=== PATIENT | female | born 1960 | race Caucasian/White ===

== ENCOUNTER → 2019-10-22 10:05 | Outpatient (BNVA) | payer MEDICAID, SELFPAY | PROVIDERS: Family Provider Family Medicine; Visit Provider Internal Medicine | DX: Z11.59 Encounter for screening for other viral diseases (principal) | CPT/HCPCS: 87635 ==

== ENCOUNTER 2019-10-24 11:32 | Day surgery (SDC) | payer MEDICAID, SELFPAY ==
[2019-10-23 12:53] VITALS: BMI 20.2
[2019-10-24] VITALS (12 sets, daily range): BP systolic 107–181; BP diastolic 79–101; PULSE 58–73; RESP 14–22; TEMP 36.1–37.1; O2SAT 96–100
--- NOTE | 2019-10-24 12:00 | W.PM.OPSUD ---
Surgery/Procedure H&P Update DATE OF PROCEDURE: October 24, 2019 DATE H&P PERFORMED: 10/09/19 PREOP DIAGNOSIS: Right rotator cuff tear PLANNED PROCEDURE: Operation Date: 10/24/19 13:50 Proposed Procedures p Shoulder Arthroscopy w/ subacromial decompression [id number] M75.101(Right) - Kenton Daily MD s Rotator Cuff Repair(Right) - Kenton Daily MD
[2019-10-24] MEDS: sodium chloride 0.9% 1,000 ML 30 ML IV (12:12)
[2019-10-24] MEDS: vancomycin 1,000 MG in sodium chloride 0.9% 250 ML 250 MG IV (12:31)
--- NOTE | 2019-10-24 12:46 | ANES.PREANE2 ---
Pre-Anesthetic Assessment Pre-Anesthetic Assessment: Height/Weight: Height 1.63 m Weight 53.524 kg Temp Pulse Resp BP Pulse Ox 97.5 F L 73 16 152/84 98 10/24/19 12:03 10/24/19 12:03 10/24/19 12:03 10/24/19 12:03 10/24/19 12:03 Preop Diagnosis: Right rotator cuff tear Proposed Procedure: Operation Date: 10/24/19 13:50 Proposed Procedures p Shoulder Arthroscopy w/ subacromial decompression [id number] M75.101(Right) - Kenton Daily MD s Rotator Cuff Repair(Right) - Kenton Daily MD Familial anesthetic complications: none Was Beta Criss taken within 24 hours: N/A Last intake: Intake Last Liquid Date 10/24/19 Last Liquid Time 07:00 Last Solid Date 10/23/19 Last Solid Time 22:30 Social: Social History: Tobacco and No alcohol Exam: Pre-Anes Outpt Exam: alert, oriented x 3, clear to auscultation bilaterally and regular rate & rhythm Airway: Cervical ROM: WNL MP: 1 Dentition: False Pulmonary: Pulmonary: COPD Comments: had nerve block for shoulder before and didn't become SOB GI: GI: GERD Anesthetic Plan: ASA status: 3 Anesthesia: General and Regional (specify below) Risk of > 500 ml blood loss (7ml/kg in children): No Meds/Allergies Current Medications: Current Medications Generic Name Dose Route Start Last Admin Trade Name Freq PRN Reason Stop Dose Admin Vancomycin HCl 1,0 00 mg/ 250 mls @ 250 mls /hr 10/24/19 11:58 10/24/19 12:31 Sodium Chloride IV 10/24/19 12:57 250 mls/hr ONCE ONE Administration Protocol Sodium Chloride 1,000 mls @ 30 ml s/hr 10/24/19 12:00 10/24/19 12:12 Sodium Chloride 0.9% IV 10/25/19 11:59 30 mls/hr .Q24H DAWNA Administration PFSH Anesthesia PFSH: Medical History (Updated 10/09/19 @ 10:56 by Petra Ledbetter LPN) Major depressive disorder, recurrent severe without psychotic features Data Anesthesia Cardiac Studies: No Data to Display
--- NOTE | 2019-10-24 12:47 | ANES.PROC ---
Anesthesia Procedures Procedure/Date: 10/24/19 Nerve Block ^: Nerve Block 1: Main Anesthesia: general anesthesia Time Out Performed: Yes Consent: requested by attending/covering physician, from patient, risks and benefits reviewed and patient agrees to proceed Nerve block location: interscalene (R) Anesthesia monitors applied: pulse oximetry, EKG, BP cuff and oxygen Nerve block position: semi sitting Anesthetic Used: ropivicaine 0.5% and with decadron (4 mg) Amount of anesthesia used (mL): 20 Ultrasound used to: recognize landmarks and visualize and ID interscalene groove Nerve Stimulator Used?: No Interscalene/Femoral BLK: 2 stimuplex 22 g needle used for position and inplane approach, visualize local anesthetic spread and no vascular puncture identified Injection: neg aspiration of heme Patient Tolerated Procedure: well Complications: none
[2019-10-24] MEDS: midazolam 1 mg/mL INJ 5 ML 5 MG IVP (12:51)
--- NOTE | 2019-10-24 15:47 | SUR.PHASEI ---
1540 PATIENT TO PACU FROM OR. DRESSING TO RIGHT SHOULDER, CDI WITH ARM SLING IN PLACE. RIGHT RADIAL PULSE PALPATED. RR EVEN AND UNLABORED. SPO2 100% ON SIMPLE MASK AT 8L.
--- NOTE | 2019-10-24 15:55 | PM.OP ---
Operative Report Date of procedure: October 24, 2019 Pre-op Diagnosis: Right rotator cuff tear Post-op diagnosis: other Post-op Diagnosis: Tear right rotator cuff, impingement Post-op Findings: The patient has a large chronic tear of the right rotator cuff approximately 2 cm from anterior to posterior that appeared crescent-shaped with the apex near the level of the glenoid. She anterior spurring of her acromion. Procedure Done: Arthroscopic repair right rotator cuff, right subacromial decompression Implants: Torres and Nephew Regeneten implant, 5.5 mm Torres and Nephew Helicoil anchor Pathology: none sent Anesthesia: General Estimated blood loss (mL): 5 Findings: The patient had a large tear of the right rotator cuff approximately 2 cm from anterior to posterior beginning just posterior to the biceps with medial extension to the level of the glenoid. She had atrophy of her tendon edges however the edges could be approximated by marginal convergence.. She had prominent anterior spurring of her acromion. Condition: stable Procedure: The patient was taken to the operating room and after an interscalene block was provided by anesthesia. She was given a gram of vancomycin. She is prepped and draped in the lateral position with the right arm exposed. A timeout was performed. The shoulder was initially entered through a posterior portal. An anterior portal was opened up with a scalpel blade. The diagnostic portion arthroscopy was performed. The biceps was inspected and found to be healthy. The humeral head and glenoid were free of chondromalacia. The labrum was free of a tearing. The scope was then moved to the subacromial space and a lateral portal open. Bursal tissue was removed with incisor shaver and Torres and Nephew Werewolf probe revealing the tear. The tendon was thin however it was also fairly mobile. Incision was made to proceed with a side to side repair and reinforced with a patch to her address the poor biologic quality tendon. Through the anterior portal an ultra tape suture was passed at the posterior apex of the tear. The articular limb was retrieved through the anterior rotator cuff tear with a sharp suture retriever. This was repeated approximately 1 cm laterally as well. Greater tuberosity was debrided with the incisor shaver. Through a lateral stab wound a 5.5 mm helical anchor was placed with 1 ultra tape. One limb of ultra tape was placed posterior and medial to the last intratendinous suture. The other limb was passed anterior and medial to the last intratendinous Ultratape. 2 intratendinous sutures were secured. Finally the suture anchor sutures secured drawing the debrided rotator cuff to bone. Through a lateral stab wound the Torres and Nephew Regeneten implant was placed. It was fixed medially anteriorly and posteriorly with soft tissue emma. It was fixed laterally with 3 bony emma. Shoulder was irrigated with saline. Portals were closed with 3-0 Prolene. Sterile dressings were applied. The patient was extubated and taken to recovery room in stable condition.
[2019-10-24] MEDS: fentaNYL 50 mcg/mL INJ 2mL IVP (16:07)
--- NOTE | 2019-10-24 16:27 | SUR.PHASEI ---
1624 PATIENT TO OPS. DRESSING TO RIGHT SHOULDER, CDI WITH SLING IN PLACE.
--- NOTE | 2019-10-24 16:45 | ANE.PACU2 ---
Inpatient post-anesthesia follow up: Airway intact: Yes Vital signs: Temperature 98.8 F Pulse Rate 72 Respiratory Rate 18 Blood Pressure 141/85 Pulse Oximetry 96 Oxygen Delivery Me thod Room Air Oxygen Flow Rate 8 Fraction of Inspir ed Oxygen Hydration adequate: Yes Nausea and vomiting: No Pain level: 1 Mental status: Baseline
== END 2019-10-24 17:14 | disposition home or self-care (01) ==
PROVIDERS: Family Provider Family Medicine; Visit Provider Orthopaedic Surgery
PROC: (CPT 29805; principal; 2019-10-24 13:50)
PROC: (CPT 29827; 2019-10-24 13:50)
DX: M75.101 Unspecified rotator cuff tear or rupture of right shoulder, not specified as traumatic (principal); M75.41 Impingement syndrome of right shoulder; J44.9 Chronic obstructive pulmonary disease, unspecified; K21.9 Gastro-esophageal reflux disease without esophagitis; F33.2 Major depressive disorder, recurrent severe without psychotic features
CPT/HCPCS: 29827; 12345; C1713; J1100; J2250; J2704; J2795; J3010; J3370; J7030; J7050

== ENCOUNTER 2021-10-20 07:47 | Outpatient (CLI) | payer MEDICAID, SELFPAY ==
--- NOTE | 2021-10-20 07:52 | MR_ITS ---
WS: [id number] MRI CERVICAL SPINE NONCONTRAST HISTORY: Chronic neck and RIGHT shoulder pain. Migraines. COMPARISON: 03/18/2015 Technique: Multiplanar, multisequence noncontrast imaging of the cervical spine. Moderate progression of degenerative disc disease and spondylosis since 2016. There is now anterolist hesis of C2 by 3 mm. Retrolisthesis of C3 by 4 mm and retrolisthesis of C4 and C5 by 3 mm. Significan t degenerative disc disease and progressive disc space narrowing at C3-4, C4-5 and C5-6 since the angela or examination. Increasing osteophytosis. Signal within the cord is normal. Craniocervical junction, C1 and C2 relationship, odontoid process and soft tissues are normal. C2-C3: Very shallow central disc protrusion. No stenosis. C3-C4: Annular disc bulging and osteophytic ridging causing complete effacement of ventral CSF. Osteo phyte and disc contact on the ventral thecal cord with posterior displacement. Moderate central steno sis with moderate RIGHT foraminal stenosis due to disc osteophyte disease. Disc osteophyte contacts t he RIGHT lateral thecal sac and proximal foramen. Mild LEFT foraminal stenosis. C4-C5: Diffuse osteophytic ridging with annular disc bulging. Mild central and LEFT foraminal stenosi s. Moderate RIGHT foraminal stenosis due to disc and osteophyte disease. C5-C6: Diffuse osteophytic ridging and annular disc bulging. Mild central stenosis with mild bilatera l foraminal stenosis. C6-C7: Mild annular disc bulging. Mild bilateral foraminal stenosis. Only due to osteophyte disease. C7-T1: Normal. Paraspinal soft tissue are normal. MR/MR cervical spin wo con* [id number] IMPRESSION: 1. Moderate progression of the degenerative disc disease and osteophytosis sin ce 2016. 2. Retrolisthesis of C3 and C4 and anterolisthesis of C2 are new since the angela or study. 3. Moderate central and RIGHT foraminal stenosis at C3-4 due to retrolisthesis disc and osteophyte disease. There is mild posterior displacement of the ventr al cervical cord. 4. Moderate RIGHT foraminal stenosis at C4-5 with mild central and LEFT forami nal stenosis. 5. Mild central and bilateral foraminal stenosis at C5-6. 6. Mild bilateral foraminal stenosis at C6-7.
--- NOTE | 2021-10-20 07:52 | MR_ITS ---
WS: [id number] MRI BRAIN WITHOUT CONTRAST HISTORY: CEREBRAL INFARCTION COMPARISON: 12/28/2005 TECHNIQUE: Diffusion imaging, multiplanar T1, T2 and FLAIR imaging obtained. There is a very tiny focus of increased diffusion-weighted signal without a corresponding ADC map abn ormality. This could potentially be a subacute, very tiny infarct in the RIGHT occipital region. Prio r infarcts in the LEFT MCA territory with encephalomalacia and gliosis. Infarcts are in the anterior LEFT frontal lobe and at the LEFT frontoparietal junction. There are a few additional areas of scatte red T2 and FLAIR signal hyperintensities from small vessel ischemic disease which have progressed sin 2005. Ventricles and extra-axial spaces are normal. No inferior displacement of cerebellar tonsils. The sella turcica and pituitary gland are unremarkabl e. Dural venous sinuses and hoopa of Mitchell demonstrate no abnormality on this unenhanced studies. Paranasal sinuses: Clear. Mastoid air cells: Normal. Calvarium and scalp: Intact. MR/MR head wo con* [id number] IMPRESSION: 1. No acute infarct or hemorrhage. 2. Questionable very tiny subacute infarct RIGHT occipital lobe. 3. Remote infarcts in the LEFT MCA artery territory with encephalomalacia and gliosis, similar to 12/28/2005. 4. Mild progression of small vessel ischemic disease.
--- NOTE | 2021-10-20 07:52 | USCV_ITS ---
Jaylyn Villanueva Age: 60 Gender: F : 1960 Exam Date: 10/20/2021 09:29 Ordering Phys: Wilbur Dupont MD Technologist: Will Ortiz Exam Location: [facility] [place] Indication: occlusion and stenosis Risk Factors: Previous Vascular Surgery: Right Brachial BP: / Left Brachial BP: / Right Left Velocity (cm/s) Spectral Plaque Velocity (cm/s) Spectral Plaque Syst/Diast Broadening Syst/Diast Broadening 51.50/ 12.90 Prox CCA 80.80 / 14.80 51.30/ 11.70 Mid CCA 52.80 / 17.90 53.80/ 15.40 Distal CCA 44.30 / 16.30 91.50/ 25.40 Prox ICA 54.90 / 19.40 99.20/ 37.50 Mid ICA 98.00 / 28.40 110.30/39.70 Distal ICA 99.80 / 33.00 121.30 ECA 66.80 1.94 ICA/CCA 1.86 Antegrade Vertebral Antegrade 60.60/ 14.30 cm/s 79.70/ 23.80 cm/s Tri Subclavian Bi 74.60 82.90 CONCLUSIONS Right ICA stenosis <50%. Mild atheromatous plaque right carotid bulb/ICA. Left ICA stenosis <50%. Prior Left CEA.Mild atheromatous plaque left carotid bulb/ICA. Normal antegrade Doppler flow noted in the right vertebral artery. Normal antegrade Doppler flow noted in the left vertebral artery. Miller Ingram MD (Electronically Signed) Final Date: 20 October 2021 10:33 S
== END 2021-10-20 07:48 | disposition home or self-care (01) ==
LOC: RAD 07:48
PROVIDERS: PCP Family Medicine; Visit Provider Family Medicine
DX: I65.23 Occlusion and stenosis of bilateral carotid arteries (principal); M54.12 Radiculopathy, cervical region; I63.9 Cerebral infarction, unspecified; G89.29 Other chronic pain; G43.909 Migraine, unspecified, not intractable, without status migrainosus; M48.02 Spinal stenosis, cervical region; M50.30 Other cervical disc degeneration, unspecified cervical region; M25.78 Osteophyte, vertebrae
CPT/HCPCS: 70551; 72141; 93880

== ENCOUNTER → 2021-11-16 11:08 | Outpatient (BNVA) | payer MEDICAID, SELFPAY | PROVIDERS: PCP Family Medicine; Referring Provider Family Medicine; Visit Provider Specialist | DX: G62.9 Polyneuropathy, unspecified (principal); M48.02 Spinal stenosis, cervical region; G99.2 Myelopathy in diseases classified elsewhere; G43.711 Chronic migraine without aura, intractable, with status migrainosus | CPT/HCPCS: 99204 ==

== ENCOUNTER → 2021-11-23 14:06 | Outpatient (BNVA) | payer MEDICAID, SELFPAY | PROVIDERS: PCP Family Medicine; Visit Provider Physician Assistant | DX: M48.02 Spinal stenosis, cervical region (principal); M47.12 Other spondylosis with myelopathy, cervical region; M75.41 Impingement syndrome of right shoulder | CPT/HCPCS: 20610; 72050; 99204; 99205; J1100; J2795 ==

== ENCOUNTER → 2021-12-15 09:02 | Outpatient (BNVA) | payer MEDICAID, SELFPAY | PROVIDERS: PCP Family Medicine; Visit Provider Anesthesiology Pain Medicine | DX: M54.2 Cervicalgia (principal); M79.601 Pain in right arm; M79.602 Pain in left arm; F17.210 Nicotine dependence, cigarettes, uncomplicated | CPT/HCPCS: 99204 ==

== ENCOUNTER → 2022-01-12 13:57 | Outpatient (BNVA) | payer MEDICAID, SELFPAY | PROVIDERS: PCP Family Medicine; Visit Provider Anesthesiology Pain Medicine | DX: M54.12 Radiculopathy, cervical region (principal); F17.210 Nicotine dependence, cigarettes, uncomplicated | CPT/HCPCS: 62321; J1100 ==

== ENCOUNTER → 2022-05-17 13:10 | Outpatient (BNVA) | payer MEDICAID, SELFPAY | PROVIDERS: PCP Family Medicine; Visit Provider Surgery | DX: Z12.11 Encounter for screening for malignant neoplasm of colon (principal) | CPT/HCPCS: 99203 ==

== ENCOUNTER 2022-06-08 08:00 | Day surgery (SDC) | payer MEDICAID, SELFPAY ==
[2022-06-06 10:03] VITALS: BMI 20.5
[2022-06-08 08:27] VITALS: BP 116/80; PULSE 84; RESP 16; TEMP 36.4; O2SAT 97
[2022-06-08] MEDS: sodium chloride 0.9% 1,000 ML 30 ML IV (08:48)
--- NOTE | 2022-06-08 09:34 | ANES.PREANE2 ---
Pre-Anesthetic Assessment Height/Weight: Height 1.63 m Weight 54.431 kg Temp Pulse Resp BP Pulse Ox O2 Del Method 97.5 F L 84 16 116/80 97 Room Air 06/08/22 08:27 06/08/22 08:27 06/08/22 08:27 06/08/22 08:27 06/08/22 08:27 06/08/22 08:27 Preop Diagnosis: Right rotator cuff tear Operation Date: 06/08/22 10:00 Proposed Procedures p Colonoscopy 85022,Z12.11(Not Applicable) - Vikas Warner DO Familial anesthetic complications: none Last intake: Intake Last Liquid Date 06/07/22 Last Liquid Time 20:00 Last Solid Date 06/06/22 Last Solid Time 19:00 Social cannabis use none today. Exam alert, oriented x 3, No clear to auscultation bilaterally and No regular rate & rhythm Airway Cervical ROM: Other (limited ROM pain.) Mallampati: Class II Dentition: false (upper plate) Pulmonary Chronic Obstructive Pulmonary Disease CV/HEM Coronary Artery Disease (CEA at 34 99% blockage per patient. She states she recently had Carotid doppler and she has 50% stenosis) None reported Hepatic None reported GI Gastroesophageal Reflux Disease Metabolic None reported Musc/skel Fibromyalgia and Osteoarthritis/DJD neck pain Neuropsych Anxiety, Cerebrovascular Accident (x2- 32 year old and 03/07 ), Depression, Headache and Neuropathy Anesthetic Plan ASA status: 3 Anesthesia: MAC Medications/Allergies Home Medications Medication Instructions Recorded Confirmed Last Taken Type omeprazole 20 mg capsule,delayed 20 mg PO DAILY 05/28/19 06/08/22 06/07/22 History release aspirin 81 mg tablet,delayed 81 mg PO DAILY 10/23/19 06/08/22 06/06/22 History release ([place] Low Dose Aspirin) [id number]-jqbcmacr 1 tab PO .q 2-4 hours PRN migraines 09/09/21 06/08/22 06/07/22 History 50 mg-325 mg-40 mg tablet (Esgic) methocarbamol 750 mg tablet 750 mg PO Q8H 11/16/21 06/08/22 06/07/22 History MARIJUANA 1 inh inhalation DAILY 12/15/21 06/08/22 06/07/22 History Allergies Allergy/AdvReac Type Severity Reaction Status Date / Time bacitracin Allergy Unknown unk Verified 06/08/22 08:23 tetracycline Allergy Unknown unk Verified 06/08/22 08:23 Current Medications Generic Name Dose Route Start Last Admin Trade Name Bernardq PRN Reason Stop Dose Admin Sodium Chloride 1,000 mls @ 30 mls/hr 06/08/22 08:15 06/08/22 08:48 Sodium Chloride 0.9% IV 06/09/22 08:14 30 mls/hr .Q24H DAWNA Administration PFSH Anesthesia Medical History (Updated 05/17/22 @ 13:51 by Vikas Warner DO) History of fracture of wrist right History of skin cancer removed from nose History of stroke Insomnia Major depressive disorder, recurrent severe without psychotic features Migraines Neck pain Numbness and tingling Psychiatric care Surgical History (Updated 05/17/22 @ 13:51 by Vikas Warner DO) History of ankle surgery left Hx of colonoscopy with polypectomy 06/28/16 Hx of hysterectomy Hx of knee surgery left lateral release Hx of shoulder surgery bilateral Social History Smoking and tobacco status: current every day smoker cigarettes Packs smoked per day: 0.5 Alcohol intake: never Substance/Drug Use: current Substance/Drug use frequency: daily Data Anesthesia Cardiac Studies: No Data to Display
--- NOTE | 2022-06-08 10:07 | W.PM.OPSUD ---
Surgery/Procedure H&P Update DATE OF PROCEDURE: June 08, 2022 DATE H&P PERFORMED: 05/17/22 H&P UPDATE INFORMATION: I have reviewed H&P completed within last 30 days, I have examined patient prior to procedure and No changes to prior documentation PREOP DIAGNOSIS: Right rotator cuff tear PLANNED PROCEDURE: Operation Date: 06/08/22 10:00 Proposed Procedures p Colonoscopy 69189,Z12.11(Not Applicable) - Vikas Warner DO
[2022-06-08 10:29] VITALS: BP 149/89; PULSE 89; RESP 14; TEMP 36.1; O2SAT 97
[2022-06-08 10:37] VITALS: BP 184/92; PULSE 72; RESP 18; O2SAT 97
--- NOTE | 2022-06-08 15:03 | ANE.PACU2 ---
Inpatient post-anesthesia follow up: Airway intact: Yes Vital signs: Temperature 97.0 F Pulse Rate 72 Respiratory Rate 18 Blood Pressure 184/92 Pulse Oximetry 97 Oxygen Delivery Me thod Room Air Oxygen Flow Rate Fraction of Inspir ed Oxygen Hydration adequate: Yes Nausea and vomiting: No Pain level: 2 Mental status: Baseline
== END 2022-06-08 10:53 | disposition home or self-care (01) ==
PROVIDERS: PCP Family Medicine; Visit Provider Surgery
PROC: 0DJD8ZZ Inspection of Lower Intestinal Tract, Via Natural or Artificial Opening Endoscopic (ICD-10-PCS; CPT 45330; 2022-06-08 10:00)
DX: Z12.11 Encounter for screening for malignant neoplasm of colon (principal); Z86.010 Personal history of colon polyps; J44.9 Chronic obstructive pulmonary disease, unspecified; I25.10 Atherosclerotic heart disease of native coronary artery without angina pectoris; K21.9 Gastro-esophageal reflux disease without esophagitis; Z86.73 Personal history of transient ischemic attack (TIA), and cerebral infarction without residual deficits; Z79.82 Long term (current) use of aspirin; F17.210 Nicotine dependence, cigarettes, uncomplicated
CPT/HCPCS: 45330; J2704; J7030

== ENCOUNTER → 2022-07-21 14:06 | Outpatient (BNVA) | payer MEDICAID, SELFPAY | PROVIDERS: PCP Family Medicine; Visit Provider Physician Assistant | DX: Z01.818 Encounter for other preprocedural examination (principal); M47.12 Other spondylosis with myelopathy, cervical region; M75.41 Impingement syndrome of right shoulder; M50.30 Other cervical disc degeneration, unspecified cervical region | CPT/HCPCS: 36415; 80053; 83036; 85025; 99204 ==

== ENCOUNTER 2022-08-10 13:05 | Inpatient (IN) | payer MEDICAID, SELFPAY ==
[2022-08-08 12:10] VITALS: BMI 19.2
[2022-08-10] VITALS (84 sets, daily range): BP systolic 107–223; BP diastolic 56–112; PULSE 62–117; RESP 10–28; TEMP 35.9–36.9; O2SAT 92–100
--- NOTE | 2022-08-10 | XR_ITS ---
WS: [id number] Exam: XR cervical spine 3V* [id number] Date/Time of Exam: 08/10/2022 12:00 AM Reason For Exam: ACDF C3-4, C4-5, C5-6 AP and lateral intraoperative C-arm images of the C-spine are obtained. Images depict anterior plate and screw fixation of the C-spine from C2 to C7. A spacer is in place at the C3-4 level. Disc spacers also noted at C6-7 and C5-6. An endotracheal tube is visualized. XR/XR cervical spine 3V* [id number] IMPRESSION: 1. Anterior cervical fusion appearing to be in satisfactory alignment.
[2022-08-10] MEDS: sodium chloride 0.9% 1,000 ML 30 ML IV (06:29)
--- NOTE | 2022-08-10 06:33 | W.PM.OPSUD ---
Surgery/Procedure H&P Update DATE OF PROCEDURE: August 10, 2022 DATE H&P PERFORMED: 08/03/22 H&P UPDATE INFORMATION: I have reviewed H&P completed within last 30 days, I have examined patient prior to procedure and No changes to prior documentation PREOP DIAGNOSIS: Cervical spondylosis with myelopathy PLANNED PROCEDURE: Operation Date: 08/10/22 07:00 Proposed Procedures p C3-4 C4-5 C5-6 ACDF:19822,19258 X 2,24793,87869,M47.12,M50.30(Not Applicable) - Jose Joaquin DO
--- NOTE | 2022-08-10 06:50 | ANES.PREANE2 ---
Pre-Anesthetic Assessment Height/Weight: Height 1.63 m Weight 50.802 kg Temp Pulse Resp BP Pulse Ox O2 Del Method 96.7 F L 81 17 156/100 100 Room Air 08/10/22 06:20 08/10/22 06:20 08/10/22 06:20 08/10/22 06:20 08/10/22 06:20 08/10/22 06:20 Preop Diagnosis: Cervical spondylosis with myelopathy Operation Date: 08/10/22 07:00 Proposed Procedures p C3-4 C4-5 C5-6 ACDF:97200,11897 X 2,00484,72773,M47.12,M50.30(Not Applicable) - Jose Joaquin DO Familial anesthetic complications: None Was Beta Criss taken within 24 hours: N/A Was Clonidine taken within 24 hours: N/A Last intake: Intake Last Liquid Date 08/09/22 Last Liquid Time 19:00 Last Solid Date 08/09/22 Last Solid Time 18:00 Social Tobacco and No alcohol Exam alert, oriented x 3, clear to auscultation bilaterally and regular rate & rhythm Airway Mallampati: Class III Dentition: false Pulmonary Chronic Obstructive Pulmonary Disease CV/HEM Hypertension Chronic Renal Insufficiency Neuropsych Cerebrovascular Accident (RITIKA) Anesthetic Plan ASA status: 3 Anesthesia: General Risk of > 500 ml blood loss (7ml/kg in children): No Other Pertinent Information patient states she has poison over the extensor surfaces of her forearms. Surgeon informed. Providers who will be in contact with patient informed Medications/Allergies Home Medications Medication Instructions Recorded Confirmed Last Taken Type omeprazole 20 mg capsule,delayed 20 mg PO DAILY 05/28/19 08/10/22 08/09/22 History release aspirin 81 mg tablet,delayed 81 mg PO DAILY 10/23/19 08/08/22 07/09/22 History release ([place] Low Dose Aspirin) [id number]-holeonychwzll-vexeejau 1 tab PO .q 2-4 hours PRN migraines 09/09/21 08/08/22 06/07/22 History 50 mg-325 mg-40 mg tablet (Esgic) methocarbamol 750 mg tablet 750 mg PO Q8H 11/16/21 08/10/22 08/08/22 History MARIJUANA 1 inh inhalation DAILY 12/15/21 08/10/22 08/09/22 History albuterol sulfate 90 mcg/actuation 1 inh inhalation Q4H PRN shortness 08/03/22 08/10/22 Unknown History aerosol inhaler (Ventolin HFA) of breath or wheezing atorvastatin 20 mg tablet 20 mg PO DAILY 08/03/22 08/10/22 08/09/22 History meloxicam 15 mg tablet 15 mg PO DAILY 08/03/22 08/10/22 08/08/22 History solifenacin 10 mg tablet 10 mg PO DAILY 08/03/22 08/10/22 08/09/22 History intraoperative neurophysiological #1 ea 08/05/22 08/05/22 Unknown Rx testing Allergies Allergy/AdvReac Type Severity Reaction Status Date / Time tetracycline Allergy Unknown unk Verified 08/03/22 10:25 sulfamethoxazole Allergy ALGY-Hives Verified 08/10/22 06:31 [From Bactrim] trimethoprim [From Bactrim] Allergy ALGY-Hives Verified 08/10/22 06:31 Current Medications Generic Name Dose Route Start Last Admin Trade Name Freq PRN Reason Stop Dose Admin Sodium Chloride 1,000 mls @ 30 mls/hr 08/10/22 06:15 08/10/22 06:29 Sodium Chloride 0.9% IV 08/11/22 06:14 30 mls/hr .Q24H DAWNA Administration PFSH Anesthesia Medical History (Updated 08/03/22 @ 11:01 by Red Dow NP) Chronic kidney disease (CKD) COPD (chronic obstructive pulmonary disease) Essential hypertension History of fracture of wrist right History of skin cancer removed from nose History of stroke Hx of arterial ischemic stroke last one August 2021 Hx of carotid stenosis Insomnia Major depressive disorder, recurrent severe without psychotic features Migraines Neck pain Numbness and tingling Psychiatric care Tobacco dependence Surgical History History of ankle surgery left Hx of colonoscopy with polypectomy 06/28/16 Hx of hysterectomy Hx of knee surgery left lateral release Hx of shoulder surgery bilateral Family History Denies family history of Clotting disorder Anesthesia complication Bleeding disorder Social History Smoking and tobacco status: current every day smoker cigarettes Packs smoked per day: 0.5 Alcohol intake: never Substance/Drug Use: current Substance/Drug use frequency: daily Data Anesthesia Cardiac Studies: No Data to Display
[2022-08-10] MEDS: ceFAZolin 2,000 MG in sodium chloride 0.9% (plus) 50 ML 100 MG IV ×3 (07:09→23:02)
[2022-08-10 07:35] LABS: Add Urine Microscopic? YES; Bilirubin Urine Neg (Negative); Blood Urine 2+ (Negative); Glucose Urine UA Norm (Normal); Ketones Urine Negative (Negative); Leukocyte Esterase Urine Negative (Negative); Nitrate Urine Negative (Negative); Protein Urine Neg (Negative); Specific Gravity, Urine 1.015 (1.005-1.030); Urine Appearance Cloudy (CLEAR); Urine Color Yellow (Yellow); Urobilinogen Urine Norm (Negative); pH Urine 6.5 (5-7)
[2022-08-10 07:42] LABS: Add Urine Culture? Yes; Bacteria Urine 4+ /hpf; Mucus Urine 1+ /hpf; RBC Urine 0-4 /hpf (0-2); Squamous Epithelial Cell Urine 0-4 /hpf (0-5)
[2022-08-10] MEDS: lidocaine-epi 2% 20 mL INJ INJECTION (07:44)
[2022-08-10] MEDS: HYDROmorphone 1 mg/mL INJ 1 mL (10:17)
--- NOTE | 2022-08-10 10:40 | PM.OP ---
Operative Report Date of procedure: August 10, 2022 Pre-op diagnosis: Preop Diagnosis Cervical spondylosis with myelopathy Post-op diagnosis: same Procedure done: 1. Corpectomy C3 >50% 2. Insertion of corpectomy cage C2-C4 3. Anterior diskectomy C2/3 4. Anterior discectomy C3/4 5. Anterior diskectomy C4/5 6. Anterior diskectomy C5/6 7. Insertion of cage C4/5 8. Insertion of cage C5/6 9. Instrumentation with anterior plate from C2-6 10. Use of allograft Surgeon: Jose Joaquin Vocal Performer: Juancarlos Napier Vocal Performer: The surgical elastic knitter hand frame, Juancarlos Napier, PAC was needed for his expertise under the microscope. He was important and necessary throughout the procedure to complete in a safe and timely manner. He assisted with patient positioning prepping and draping tissue retraction suctioning of the operative field protection of the dural sac and tissue closure Estimated blood loss (mL): 50 Procedure: 1. Corpectomy C3 >50% 2. Insertion of corpectomy cage C2-C4 3. Anterior diskectomy C2/3 4. Anterior discectomy C3/4 5. Anterior diskectomy C4/5 6. Anterior diskectomy C5/6 7. Insertion of cage C4/5 8. Insertion of cage C5/6 9. Instrumentation with anterior plate from C2-6 10. Use of allograft The patient was taken to the operating room, where he underwent general endotracheal anesthesia without complications. He was then positioned supine on the operating table, and all areas of impingement were well padded. The arms were carefully padded and tucked at his sides. A roll was placed between the shoulder blades.. An x-ray was done to determine the appropriate level for the skin incision. The entire neck was then sterilely prepped and draped in the usual fashion. Neuromonitoring was attached prior to prepping. A transverse skin incision was made and carried down to the platysma muscle. This was then split in line with its fibers. Blunt dissection was carried down medial to the carotid sheath and lateral to the trachea and esophagus until the anterior cervical spine was visualized. A needle was placed into a disc and an x-ray was done to determine its location. The longus colli muscles were then elevated bilaterally with the electrocautery unit. Self-retaining retractors were placed deep to the longus colli muscle. Patient was brought to the C2-C4 level. The [place] pin was placed into the C2 vertebral body. And another [place] pin was placed into the C4 vertebral body. This was then distracted. Next attention was brought to bring the microscope in. Discectomy was performed at C2-3. This was done using Bovie curved curettes high-speed drill the discectomy was brought down to the posterior longitudinal ligament. Curved curette was used to puncture through the longitudinal ligament. And then a #2 Kerrison was used to take out the remaining ligament and disc out into the foramen bilaterally. Nerves were felt to be adequate decompressed. Next attention was brought down to the C3-4 disc. This was again done using the Bovie pituitary Kerrison rongeur and curved curettes. Once the posterior longitudinal ligament was identified the the curved curette was used to break through the posterior longitudinal ligament and Kerrison rongeur was used to remove the remaining ligament. Once this was completed a high-speed drill was then used to remove the the vertebral body performing the corpectomy this drill was used all the way down to the posterior longitudinal ligament. Kerrison rongeurs were then used to remove any remaining disc and posterior longitudinal ligaments of the dura was exposed the dura was found to be in good repair the foramen of both C2-3 bilaterally and C3-4 bilaterally found to be completely open. The spacers were used to identify the length and width of the corpectomy site the interbody was again completely removed. And then a appropriate sized cage spanning from C2-C4. The cage was packed with OsteoMed bone graft. And the cage was tamped into position checked with x-ray and found to be in good position. Attention was brought to the C4/5 level that was confirmed on x-ray. A caspar pin was placed into the C4 vertebrae and the C5 vertebrae. The disk space was then distracted. The microscope was then brought in. A radical anterior discectomies were performed at C4/5. This included complete removal of the anterior annulus, nucleus, and posterior annulus. The posterior longitudinal ligament was removed as were the posterior osteophytes. Foraminotomies were then accomplished bilaterally. This was done using a high speed jasmin, kerrison rongeurs and curretes Once all of this was accomplished, the curved currette was used to check for any residual compression. The central canal was wide open as were the foramen. A high-speed bur was used to remove the cartilaginous endplates above and below the interspace. Bleeding cancellous bone was exposed. The disc space were measured and appropriate size cage were placed sterilely onto the field. Allograft graft was packed into the cages. The cage was then placed and there was good juxtaposition against the bleeding decorticated surfaces and good distraction of each interspace. Attention was brought to the next interspace. The [place] pins were removed. Bone wax was used to prevent any bleeding from occurring at the pin sites. Attention was brought to the C5/6 level that was confirmed on x-ray. A caspar pin was placed into the C5 vertebrae and the C6 vertebrae. The disk space was then distracted. The microscope was then brought in. A radical anterior discectomies were performed at C5/6. This included complete removal of the anterior annulus, nucleus, and posterior annulus. The posterior longitudinal ligament was removed as were the posterior osteophytes. Foraminotomies were then accomplished bilaterally. This was done using a high speed jasmin, kerrison rongeurs and curretes Once all of this was accomplished, the curved currette was used to check for any residual compression. The central canal was wide open as were the foramen. A high-speed bur was used to remove the cartilaginous endplates above and below the interspace. Bleeding cancellous bone was exposed. The disc space were measured and appropriate size cage were placed sterilely onto the field. Allograft graft was packed into the cages. The cage was then placed and there was good juxtaposition against the bleeding decorticated surfaces and good distraction of each interspace. Attention was brought to the next interspace. The [place] pins were removed. Bone wax was used to prevent any bleeding from occurring at the pin sites. The appropriate size anterior cervical locking plate was chosen and bent into gentle lordosis. Two screws were then placed into each of the vertebral bodies at C2, C4, C5 and C6. There was excellent purchase. A final x-ray was done confirming good position of the hardware and Cages. The locking screws were then applied, also with excellent purchase. Following a final copious irrigation, there was good hemostasis and no dural leaks. The carotid pulse was strong. The wounds were then closed in layers using 2-0 Vicryl suture for the platysma muscle, 2-0 Vicryl suture for the subcutaneous tissue, and 4-0 monocryl suture in a subcuticular skin closure. Glue was placed followed by application of a sterile dressing. The drain was hooked to bulb suction. A soft collar was applied. The patient was then carefully returned to the supine position on his hospital bed where he was reversed and extubated and taken to the recovery room having tolerated the procedure well.
[2022-08-10] MEDS: racepinephrine 0.5 mL Neb (12:05)
[2022-08-10] MEDS: HYDROcodone-acetaminophen 5-325 mg Tablet PO ×3 (13:26→23:08)
[2022-08-10] MEDS: diazePAM 5 mg Tablet PO ×2 (14:34→23:08)
--- NOTE | 2022-08-10 15:54 | ANE.PACU2 ---
Inpatient post-anesthesia follow up: Airway intact: Yes Vital signs: Temperature 98.0 F Pulse Rate 95 Respiratory Rate 16 Blood Pressure 126/67 Pulse Oximetry 96 Oxygen Delivery Me thod Room Air Oxygen Flow Rate 2 Fraction of Inspir ed Oxygen Hydration adequate: Yes Nausea and vomiting: No Pain level: 1 Mental status: Baseline Additional Comments: globus sensation and stridor - racemix epi given and surgeon inspected operative site
[2022-08-10] MEDS: methocarbamol 750 mg Tablet PO (17:28)
[2022-08-10] MEDS: docusate sodium 100 mg Capsule PO (17:30)
[2022-08-10] MEDS: ketorolac 30 mg/mL INJ IVP (19:30)
--- NOTE | 2022-08-10 20:49 | PC.NURSE ---
Patient refusing to leave telemetry in place due to extreme itching stating, they will leave blisters . Informed Dr Mathias and received onetime dose of Benadryl 50mg IVP for allergic reaction. RVBO
[2022-08-10] MEDS: diphenhydrAMINE 50 mg/mL SDV 1mL IVP (20:57)
[2022-08-11] VITALS (13 sets, daily range): BP systolic 132–174; BP diastolic 68–83; PULSE 59–92; RESP 10–20; TEMP 37; O2SAT 95–99
[2022-08-11] MEDS: methocarbamol 750 mg Tablet PO (02:56)
[2022-08-11] MEDS: ceFAZolin 2,000 MG in sodium chloride 0.9% (plus) 50 ML 100 MG IV (06:02)
[2022-08-11] MEDS: ketorolac 30 mg/mL INJ IVP (06:06)
--- NOTE | 2022-08-11 06:52 | PM.PN ---
Subjective Subjective: POD 1 Patient resting comfortably. Feeling much better. Mild swallowing difficulty no voice changes. Denies any chest pain, shortness of breath, headaches. Vitals/I&O/Wt Last Vital Signs Temp 98.6 F 08/11/22 06:00 Pulse 75 08/11/22 06:00 Resp 15 08/11/22 06:00 BP 172/83 08/11/22 06:00 Pulse Ox 99 08/11/22 06:00 O2 Del Method Room Air 08/11/22 06:00 O2 Flow Rate 2 08/10/22 10:53 08/10/22 08/10/22 08/11/22 14:59 22:59 06:59 Intake Total 150 / 150 827.5 / 977.5 390 / 1367.5 Output Total 220 / 220 320 / 540 800 / 1340 Balance -70 / -70 507.5 / 437.5 -410 / 27.5 Weight last 48 hrs Weight 112 lb Physical Exam Narrative: Patient is alert and oriented x3 with a good general appearance normal mood and affect. Nontender with palpation about the incisional site. Hemovac drain intact. Incision appears to be healing nicely without signs of erythema or drainage. No signs of infection. Good motor strength throughout both upper extremities. Appears to fire in all motor groups with 5/5 strength. Hands are warm good cap refill in all digits. Normal sensation to light touch in all dermatomal areas. Urinary Catheter Management: Adamson: Cath Placed During This Visit: yes, but has since been removed by the nurse Urinary Catheter Date of Insertion: 08/10/22 Urinary Catheter Time of Insertion: 07:12 Date Urinary Catheter Removed: 08/10/22 Time Urinary Catheter Discontinued: 10:00 A&P Assessment and plan (1) Status post cervical spinal fusion: Continue Ulster J collar. We will discontinue Hemovac drain. Discharge home after physical therapy mobilizes. Follow-up in the office in 1 week's time for wound check. Continue incentive spirometry for pulmonary toilet. Continue smoking cessation. Encouraged her to call for problems. Attestations Medical Necessity Statement*: Discharge home after Hemovac drain discontinued. Coding Level of Care Code Acute Code for Chg Fwd Diagnoses Status post cervical spinal fusion Z98.1
--- NOTE | 2022-08-11 07:26 | PC.NURSE ---
Hemovac removed per Juancarlos Murguia. Silverlon dressing removed, hemovac was removed and 2x2 gauze dressing placed over incision.
[2022-08-11] MEDS: aspirin 81 mg EC Tablet PO (08:22)
[2022-08-11] MEDS: HYDROcodone-acetaminophen 5-325 mg Tablet PO (08:23)
[2022-08-11] MEDS: pantoprazole DR 40 mg Tablet PO (08:23)
[2022-08-11] MEDS: docusate sodium 100 mg Capsule PO (08:23)
[2022-08-11] MEDS: atorvastatin 40 mg Tablet 20 MG PO (08:23)
--- NOTE | 2022-08-11 10:48 | PC.NURSE ---
Extensive education provided to patient with granddaughter at bedside. Written education provided as well as verbal education regarding post cervical spinal fusion care at home, follow up appointment, lifting restrictions, S/S to call provider or 911, S/S of infection, wound care, and fall risk. Patient verbalized understanding of teaching and was able to demonstrate teachings and teach back. Patient brought via wheelchair to personal vehicle with granddaughter as trash collector truck driver. Patient to stop by pharmacy on her way home.
--- NOTE | 2022-08-16 08:41 | W.PM.OPSUD ---
Surgery/Procedure H&P Update DATE OF PROCEDURE: 08/10/2022 DATE H&P PERFORMED: 07/21/22 H&P UPDATE INFORMATION: I have reviewed H&P completed within last 30 days, I have examined patient prior to procedure and No changes to prior documentation PREOP DIAGNOSIS: Cervical spondylosis with myelopathy PLANNED PROCEDURE: Operation Date: 08/10/22 07:00 Proposed Procedures p C3-4 C4-5 C5-6 ACDF:[id number] X 2,[id number],88519,M47.12,M50.30(Not Applicable) - Jose Joaquin DO
--- NOTE | 2022-08-16 08:41 | PM.DCS ---
Discharge Providers Date of Admission: 08/10/22 13:05 Date of Discharge: 2022 Attending Provider at Admission: Jose Joaqiun DO Attending Provider at Discharge: Jose Joaquin DO Primary Care Provider: Wilbur Dupont MD Diagnoses at Discharge Discharge Diagnosis (1) Status post cervical spinal fusion: Status: Acute Reason for Visit Reason for Visit: M47.12, M50.30 Physical Exam Urinary Catheter Management: Adamson: Cath Placed During This Visit: yes, but has since been removed by the nurse Urinary Catheter Date of Insertion: 08/10/22 Urinary Catheter Time of Insertion: 07:12 Date Urinary Catheter Removed: 08/10/22 Time Urinary Catheter Discontinued: 10:00 Discharge Data Studies Completed and Pending Completed Studies During Hospitalization Category Date Time Status XR cervical spine 3V* [id number] Routine Exams 08/10/22 Completed Radiology Impressions Cervical Spine X-Ray 08/10/22 00:00 IMPRESSION: 1. Anterior cervical fusion appearing to be in satisfactory alignment. Laboratory Results Urine Color Yellow (Yellow) 08/10/22 07:02 Urine Appearance Cloudy (CLEAR) A 08/10/22 07:02 Urine pH 6.5 (5-7) 08/10/22 07:02 Ur Specific [place] 1.015 (1.005-1.030) 08/10/22 07:02 Urine Protein Neg (Negative) 08/10/22 07:02 Urine Glucose (UA) Norm (Normal) 08/10/22 07:02 Urine Ketones Negative (Negative) 08/10/22 07:02 Urine Blood 2+ (Negative) H 08/10/22 07:02 Urine Nitrate Negative (Negative) 08/10/22 07:02 Urine Bilirubin Neg (Negative) 08/10/22 07:02 Urine Urobilinogen Norm mg/dL (Negative) 08/10/22 07:02 Ur Leukocyte Esterase Negative (Negative) 08/10/22 07:02 Urine RBC 0-4 /hpf (0-2) H 08/10/22 07:02 Urine WBC 5-10 /hpf (0-5) H 08/10/22 07:02 Ur Squamous Epith Cells 0-4 /hpf (0-5) H 08/10/22 07:02 Amorphous Sediment Not Reportable 08/10/22 07:02 Urine Bacteria 4+ /hpf (NONE) H 08/10/22 07:02 Urine Mucus 1+ /hpf 08/10/22 07:02 Vitals Last Vital Signs Temp 98.6 F 08/11/22 09:42 Pulse 85 08/11/22 10:00 Resp 20 H 08/11/22 10:00 BP 142/80 08/11/22 10:00 Pulse Ox 96 08/11/22 10:00 O2 Del Method Room Air 08/11/22 10:00 O2 Flow Rate 2 08/10/22 10:53 Discharge Plan Discharge Patient Disposition: Home Condition: Stable Prescriptions: New (DME) intraoperative neurophysiological testing See Rx Instructions .Route .MEDSUPPLY Qty: 1 0RF Rx Instructions: As directed hydrocodone-acetaminophen 5-325 mg Tablet 1 - 2 tab PO Q4H PRN (Reason: Post Operative Pain) Qty: 40 0RF Continued omeprazole 20 mg capsule,delayed release(DR/EC) 20 mg PO DAILY MARIJUANA 1 inh inhalation DAILY zwftpxtaim-xhlzopsugeiod-xyvf [Esgic] 50-325-40 mg tablet 1 tab PO .q 2-4 hours PRN (Reason: migraines) methocarbamol 750 mg tablet 750 mg PO Q8H atorvastatin 20 mg tablet 20 mg PO DAILY meloxicam 15 mg tablet 15 mg PO DAILY albuterol sulfate [Ventolin HFA] 90 mcg/actuation HFA aerosol inhaler 1 inh inhalation Q4H PRN (Reason: shortness of breath or wheezing) solifenacin 10 mg tablet 10 mg PO DAILY aspirin [[place] Low Dose Aspirin] 81 mg Tablet,Delayed Release (Dr/Ec) 81 mg PO DAILY Discharge Orders: Discharge Order (Routine); Ordered 08/11/22 Ordered By: Juancarlos Napier Referrals: Jose Joaquin DO [Physician] - 4-7 days (appointment date and time scheduled : August at time of 3:15 pm ) Discharge Diet: Advance as tolerated Discharge Activity: Limit activity as instructed Patient Instructions: Hydrocodone/Acetaminophen (By mouth) (Vicodin, [place], Lortab), Fall Prevention (DC), Anterior Cervical Discectomy (DC), Opioid Safety, Post Anesthesia Care Activity Restrictions/Additional Instructions: Thank you for choosing [facility] for your care! The following is a list of instructions, from your provider, to follow upon your discharge to ensure you have the optimal recovery from your recent injury or surgery. Anterior Cervical Discectomy and Fusion: What to Expect at Home Your Recovery Follow-up care is a neri part of your treatment and safety. Be sure to make and go to all appointments, and call your doctor if you are having problems. If you do not already have a follow-up appointment made, call office in the next 1-3 days to make follow up appointment for 1 weeks at [phone]. It is also a good idea to know your test results and keep a list of the medicines you take. You can expect your neck to feel stiff or sore after surgery. This should improve in the weeks after surgery. But it may take 4 to 6 months for you to get better completely. You may have trouble sitting or standing in one position for very long and may need pain medicine in the weeks after your surgery. It may take 4 to 6 weeks to get back to your usual activities, but it may depend on what kind of surgery you had. Your throat will feel sore and it may be difficult to swallow for the first 3 days after your surgery. As long as you can get liquids down without difficulty, this should slowly improve, otherwise call our office or seek medical attention if it becomes increasingly difficult to get anything down including liquids. Avoid hot liquids for first 3-5 days. Soothing foods/liquids such as jello, pudding, and luke warm soups are recommended until swallowing improves. Staying elevated will also help, it's advised you keep propped up at while sleeping to help reduce the swelling. You may use an ice pack directly on your incision or around it on the front of your neck, using a cloth to protect your skin; and a heating pad to the back of your neck as needed. Do not use over the counter anti-inflammatory medications (Ibuprofen, Motrin, Aleve, Advil, etc) Taking these meds after having a fusion can delay fusion rates, we recommend you avoid them for the first 3 [address] after your surgery[address]. Joaquin may advise you to work with a physical therapist to strengthen the muscles around your neck and back - this will be discussed at your follow - up appointments. The pain or numbness you were having in your arms before surgery should get better or go away completely. This care sheet gives you a general idea about how long it will take for you to recover. But each person recovers at a different pace. Follow the steps below to get better as quickly as possible. How can you care for yourself at home? Activity ? Rest when you feel tired. Getting enough sleep will help you recover. ? Try to walk each day. Start by walking a little more than you did the day before. Bit by bit, increase the amount you walk. Walking boosts blood flow and helps prevent pneumonia and constipation. Walking may also decrease your muscle soreness after surgery. ? No lifting anything that is more that 5 pounds. This may include heavy grocery bags and milk containers, a heavy briefcase or backpack, cat litter or dog food bags, a child, or a vacuum mercury cell cleaner. ? Avoid strenuous activities, such as bicycle riding, jogging, weightlifting, or aerobic exercise, until your doctor says it is okay. ? Do not drive until your follow-up visit after your surgery, or until your doctor says it isokay. ? Avoid taking long car trips for 2 to 4 weeks after surgery. Your neck may become tired and painful from sitting too long in one position. ? You will probably need to take 4 to 6 weeks off from work. It depends on the type of work you do and how you feel. ? You may have sex as soon as you feel able, but avoid positions that put stress on your neck or cause pain. Diet ? You can eat your normal diet. If your stomach is upset, try bland, low-fat foods like plain rice, broiled chicken, toast, and yogurt ? Drink plenty of fluids. If you have kidney, heart, or liver disease and have to limit fluids, talk with your doctor before you increase the amount of fluids you drink. ? You may notice that your bowel movements are not regular right after your surgery. This is common. Try to avoid constipation and straining with bowel movements. You may want to take a fiber supplement every day. If you have not had a bowel movement after a couple of days, ask your doctor about taking a mild laxative. Medicines ? Take pain medicines exactly as directed. 1. If Dr. Joaquin gave you a prescription medicine for pain, take lt as prescribed. 2. Do not take two or more pain medicines at the same time unless the doctor told you to. Many pain medicines have acetaminophen, which is Tylenol. Too much acetaminophen {Tylenol) can be harmful. 3. If you think your pain pill is making you sick to your stomach: 4. Take your pills after meals (unless your doctor has told you not to). 5. Ask your Dr. for a different pain pill. Incisioncare ? Remove your dressing 48 hours after your surgery. Ok to shower and get the incision wet. Do not overtly wash your incision. When done, pad dry, leave open to air thereafter. Avoid creams and ointments directly on your incision. ? Your sutures in the incision will dissolve and fall out on their own. ? Keep the area clean and dry. You may cover it with a gauze bandage if it weeps or rubs against clothing; if you choose to do this, change the dressing everyday. Other instructions ? Use a heating pad, hot water bottle, or gentle massage on your back to reduce stiffness. Avoid putting heat on your incision When should you call for help? ? Call 911 anytime you think you may need emergency care. For example, call if: ? You pass out (lose consciousness). ? You have sudden chest pain and shortness of breath, or you cough upblood. ? You cannot swallow. ? You have severe pain in your neck or back. ? Call your Dr. or seek immediate medical care if: ? You have pain that does not get better after you take pain pills. ? You have loose stitches, or your incision comes open. ? You have blood or fluid draining from the incision. ? You have signs of infection, such as: 1. Increased pain, swelling, warmth, or redness. 2. Red streaks leading from the site. 3. Pus draining from the site. 4. Swollen lymph nodes in your neck or armpits. 5. A fever. ? You have severe pain in your arms. ? You have new or increased weakness or numbness in your arms. ? Watch closely for any changes in your health, and be sure to contact your doctor if: ? You do not have a bowel movement after taking a laxative. Discharge Attestations Time Spent in Discharge Care*: less than 30 min Quality Metrics Clinical Quality Measures [ No reported AMI, CVA or VTE this stay] Coding Level of Care Code Acute Code for Chg Fwd Diagnoses Status post cervical spinal fusion Z98.1
== END 2022-08-11 10:53 | disposition home or self-care (01) | DRG 472 ==
LOC: ICU 13:06
PROVIDERS: Admitting Provider Orthopaedic Surgery; PCP Family Medicine; Visit Provider Orthopaedic Surgery
PROC: 0RB30ZZ Excision of Cervical Vertebral Disc, Open Approach (ICD-10-PCS; CPT 22551; principal; 2022-08-10 07:00)
DX: M47.12 Other spondylosis with myelopathy, cervical region (principal); F33.9 Major depressive disorder, recurrent, unspecified; Z85.828 Personal history of other malignant neoplasm of skin; Z86.73 Personal history of transient ischemic attack (TIA), and cerebral infarction without residual deficits; F17.210 Nicotine dependence, cigarettes, uncomplicated; J44.9 Chronic obstructive pulmonary disease, unspecified; N18.9 Chronic kidney disease, unspecified; I12.9 Hypertensive chronic kidney disease with stage 1 through stage 4 chronic kidney disease, or unspecified chronic kidney disease; Z79.82 Long term (current) use of aspirin; Z79.51 Long term (current) use of inhaled steroids
CPT/HCPCS: 51702; 72040; 76000; 81001; 87077; 87086; 87186; 96376; 97110; 97161; 97530; C1713; C1763; C9359; J0330; J0690; J1100; J1170; J1200; J1885; J2405; J2704; J3010; J3490; J7030; L0172

== ENCOUNTER → 2022-08-18 15:10 | Outpatient (BNVA) | payer MEDICAID, SELFPAY | PROVIDERS: PCP Family Medicine; Visit Provider Physician Assistant | DX: Z98.1 Arthrodesis status (principal) | CPT/HCPCS: 99024 ==

== ENCOUNTER → 2022-08-23 14:21 | Outpatient (BNVA) | payer MEDICAID, SELFPAY | PROVIDERS: PCP Family Medicine; Visit Provider Physician Assistant | DX: Z98.1 Arthrodesis status (principal) | CPT/HCPCS: 72040; 99024 ==

== ENCOUNTER → 2022-09-29 13:09 | Outpatient (BNVA) | payer MEDICAID, SELFPAY | PROVIDERS: PCP Family Medicine; Visit Provider Physician Assistant | DX: Z98.1 Arthrodesis status (principal); Z47.89 Encounter for other orthopedic aftercare | CPT/HCPCS: 72040; 99024; 99213 ==

== ENCOUNTER → 2022-10-13 11:11 | Outpatient (BNVA) | payer MEDICAID, SELFPAY | PROVIDERS: PCP Family Medicine; Visit Provider Orthopaedic Surgery | DX: Z47.89 Encounter for other orthopedic aftercare (principal); Z98.1 Arthrodesis status | CPT/HCPCS: 72040; 99024 ==

== ENCOUNTER 2022-10-14 15:28 | Outpatient (CLI) | payer MEDICAID, SELFPAY ==
--- NOTE | 2022-10-14 16:00 | CT_ITS ---
WS: [id number] CT CERVICAL SPINE TECHNIQUE: Noncontrast CT of the cervical spine with coronal and sagittal reformatted images. CLINICAL INFORMATION: Post cervical fusion complications COMPARISON: Radiograph 10/13/2022 and 09/29/2022. DLP: 155.[address] scans at [facility] use at least one of these dose optimization techniques: automated e xposure control; mA and/or kV adjustment per patient size (includes targeted exams where dose is matc hed to clinical indication); or iterative reconstruction. FINDINGS: Postoperative changes anterior cervical fusion C2-C6 with partial corpectomy at C3 with interbody str ut graft. Interbody fusion grafts C4-C5 and C5-C6. No high-grade central canal stenosis. Slight retro listhesis and subsidence at the C2-3 level. Retrolisthesis of C2 on the corpectomy and intervening st rut graft measures 4 mm which appears increased from the original intraoperative studies. Mild subsid ence of C2 on the C3 strut graft. Slight lucency involving the C2 fixation screws. Slight lucency tessa ng the LEFT greater than RIGHT C6 fixation screws. Hardware appears intact. C2-C3: Spinal canal and foramen appear patent. Mild facet arthropathy. C3-C4: Endplate ridging with slight effacement of the ventral thecal sac. Severe RIGHT and mild LEFT bony foraminal narrowing. Moderate facet arthropathy. C4-C5: Osteophytic ridging with moderate RIGHT and mild LEFT bony foraminal narrowing. Moderate facet arthropathy. C5-C6: Moderate bilateral bony foraminal narrowing RIGHT greater than LEFT. Moderate facet arthropath y. C6-C7: Moderate LEFT and no significant RIGHT foraminal narrowing. Spinal canal is patent. C7-T1: No significant disc bulging. Spinal canal and foramen are patent. Visualized posterior nasopharynx: Normal. Prevertebral soft tissues: Normal. Pleural thickening and fibrosis in the lung apices. Fibrotic appearing changes with a few patchy opac ities in the RIGHT lung apex likely inflammatory RIGHT upper lobe. IMPRESSION: 1. Slight retrolisthesis of C2 on C3 strut graft with widening between C2 and the anterior fixation plate measuring 4 mm. This appears new since the intraoperative radiograph. 2. Slight lucency along the C2 and LEFT greater than RIGHT C6 fixation screws. 3. Multilevel bony foraminal narrowing worse at severe RIGHT C3-4. Otherwise moderate bony foraminal narrowing described above. 4. No significant central canal stenosis.
== END 2022-10-14 15:29 | disposition home or self-care (01) ==
LOC: RAD 15:30
PROVIDERS: PCP Family Medicine; Visit Provider Orthopaedic Surgery
DX: M50.30 Other cervical disc degeneration, unspecified cervical region (principal); Z98.1 Arthrodesis status; M43.12 Spondylolisthesis, cervical region; M48.02 Spinal stenosis, cervical region
CPT/HCPCS: 72125

== ENCOUNTER → 2022-10-18 12:58 | Outpatient (BNVA) | payer MEDICAID, SELFPAY | PROVIDERS: PCP Family Medicine; Visit Provider Orthopaedic Surgery | DX: T84.296A Other mechanical complication of internal fixation device of vertebrae, initial encounter; Y83.8 Other surgical procedures as the cause of abnormal reaction of the patient, or of later complication, without mention of misadventure at the time of the procedure | CPT/HCPCS: 99024 ==

== ENCOUNTER 2022-10-18 14:39 | Inpatient (IN) | payer MEDICAID, SELFPAY ==
[2022-10-18 15:02] VITALS: BMI 18.2
--- NOTE | 2022-10-18 16:02 | PM.HP ---
Providers/Chief Complaint Admitting Physician: Jose Joaquin DO Primary Care Provider: Wilbur Dupont MD Chief Complaint: Cervical Spondilosos History of Present Illness Brianne Villanueva is a 61 year old female here for discussion of CT results with a previous C2-6 ACDF? DOS: 08/10/22. Patient reports a pop to the neck about 10 days ago after she took her cervical collar off and now if experiencing 9/10 pain and numbness to the left side of the neck radiating down to the shoulder. Patient states 2 nights ago she felt like her neck was hard and experienced a choking feeling. Patient states she took a flexeril and hydrocodone and was able to relieve the pain and go back to sleep. Patient reports numbness to bottom of both feet. Patient reports numbness and tingling to both hands and fingers along and up her left arm. Patients reports new onset migraines within the last 3 days. Pain has persisted to the point where it is unbearable. Review of Systems Const: Denies: chills Card: Denies: chest pain or dyspnea on exertion Resp: Denies: dyspnea, productive cough or wheezing GI: Denies: abdominal pain, nausea or vomiting Musc: Reports: joint pain, joint swelling and limited range of motion Skin/Breast: Denies: changes in skin color or dry skin Neuro: Denies: numbness in extremities or weakness in extremities Psych: Denies: anxiety Yoel/Lymph: Denies: easy bruising or easy bleeding Medications/Allergies Home Medications Medication Instructions Recorded Confirmed Last Taken Type omeprazole 20 mg capsule,delayed 20 mg PO DAILY 05/28/19 10/18/22 10/17/22 08:30 History release aspirin 81 mg tablet,delayed 81 mg PO DAILY 10/23/19 10/18/22 10/11/22 09:00 History release (Esperanza Low Dose Aspirin) [id number]-hakuiqbylolht-xklaakqf 1 tab PO .q 2-4 hours PRN migraines 09/09/21 10/18/22 10/16/22 09:00 History 50 mg-325 mg-40 mg tablet (Esgic) methocarbamol 750 mg tablet 750 mg PO Q8H 11/16/21 10/18/22 10/17/22 08:30 History MARIJUANA 1 inh inhalation DAILY 12/15/21 10/18/22 10/18/22 History 1200 albuterol sulfate 90 mcg/actuation 1 inh inhalation Q4H PRN shortness 08/03/22 10/18/22 10/17/22 20:30 History aerosol inhaler (Ventolin HFA) of breath or wheezing atorvastatin 20 mg tablet 20 mg PO DAILY 08/03/22 10/18/22 10/16/22 09:00 History meloxicam 15 mg tablet 15 mg PO DAILY 08/03/22 10/18/22 10/18/22 09:00 History solifenacin 10 mg tablet 10 mg PO DAILY 08/03/22 10/18/22 10/18/22 09:00 History intraoperative neurophysiological #1 ea 08/05/22 10/18/22 Unknown Rx testing hydrocodone 5 mg-acetaminophen 325 1 - 2 tab PO Q4H PRN Post 08/11/22 10/18/22 10/16/22 08:30 Rx mg tablet Operative Pain #40 tabs cyclobenzaprine 10 mg tablet 10 mg PO TID PRN muscle spasm #30 09/29/22 10/18/22 10/17/22 08:30 Rx tabs mirtazapine 15 mg tablet (Remeron) 15 mg PO DAILY #30 tabs 10/05/22 10/18/22 10/17/22 08:30 Rx Allergies Allergy/AdvReac Type Severity Reaction Status Date / Time tetracycline Allergy Unknown unk Verified 10/18/22 13:03 adhesive tape Allergy ALGY-Hives Verified 10/18/22 15:06 sulfamethoxazole Allergy ALGY-Hives Verified 10/18/22 13:03 [From Bactrim] trimethoprim [From Bactrim] Allergy ALGY-Hives Verified 10/18/22 13:03 PFSH Acute PFSH: Medical History Chronic kidney disease (CKD) COPD (chronic obstructive pulmonary disease) Essential hypertension History of fracture of wrist right History of skin cancer removed from nose History of stroke Hx of arterial ischemic stroke last one August 2021 Hx of carotid stenosis Insomnia Major depressive disorder, recurrent severe without psychotic features Migraines Neck pain Numbness and tingling Psychiatric care Tobacco dependence Surgical History History of ankle surgery left Hx of colonoscopy with polypectomy 06/28/16 Hx of hysterectomy Hx of knee surgery left lateral release Hx of shoulder surgery bilateral Family History Denies family history of Clotting disorder Anesthesia complication Bleeding disorder Social History Smoking and tobacco status: current every day smoker cigarettes Packs smoked per day: 0.5 Alcohol intake: never Substance/Drug Use: current Substance/Drug use frequency: daily Vitals/I&O/Wt Last Vital Signs O2 Del Method Room Air 10/18/22 15:02 Weight last 48 hrs Weight 106 lb 6 oz Physical Exam Narrative: Patient is alert and oriented x3 with a good general appearance normal mood and affect. Markedly tender with palpation about the focal region. Incision appears to be healing nicely without signs of erythema or drainage. No signs of infection. Good motor strength throughout both upper extremities. Appears to fire in all motor groups with 4/5 strength. Hands are warm good cap refill in all digits. Normal sensation to light touch in all dermatomal areas. HENMT: COMMON NORMALS: normocephalic Resp: COMMON NORMALS: normal respiratory effort Cardio: COMMON NORMALS: regular rate and regular rhythm GI: COMMON NORMALS: Soft to palpation and non-tender : COMMON NORMALS: Yes no CVA tenderness Psych: COMMON NORMALS: mental status grossly normal and cooperative Data Other CT: Radiologist's impression: MPRESSION: 1.? Slight retrolisthesis of C2 on C3 strut graft with widening between C2 and the anterior fixation plate measuring 4 mm. This appears new since the intraoperative radiograph. 2.? Slight lucency along the C2 and LEFT greater than RIGHT C6 fixation screws. 3.? Multilevel bony foraminal narrowing worse at severe RIGHT C3-4. Otherwise moderate bony foraminal narrowing described above. 4.? No significant central canal stenosis. A&P Assessment and plan (1) Status post cervical spinal fusion: At this point hardware is failing and will need posterior stabilization. We will admit for pain management and proceed with a C2-T2 posterior instrumented fusion. Dr. Joaquin discussed the risks of the procedures could limited to bleeding infection nerve damage continued neck pain need for surgery reaction anesthesia she understands these risks wished to proceed. More than 50% of the time spent with the patient today involved coordination of care, counseling and discussion of conservative versus surgical treatment options. Total amount of time spent with the patient was 32 minutes. (2) Cervical spondylosis with myelopathy: Attestations Medical Necessity Statement*: Have protective services social worker consulted after the operative procedure for placement. Expected hospital stay is 3 midnights Coding Level of Care Code Acute Code for Chg Fwd Diagnoses Status post cervical spinal fusion Z98.1 Cervical spondylosis with myelopathy M47.12 Time Spent (min) 32
[2022-10-18] MEDS: ketorolac 30 mg/mL INJ 15 MG IVP (16:41)
--- NOTE | 2022-10-18 16:44 | ECG_ITS ---
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 Measurements Intervals [place] Rate: 65 P: -14 MO: 139 QRS: 15 QRSD: 81 T: 28 QT: 434 QTc: 451 Interpretive Statements SINUS RHYTHM MODERATE VOLTAGE CRITERIA FOR LVH, CONSIDER NORMAL VARIANT [MEETS CRITERIA IN ONE OF: R(aVL), S(V1), R(V5), R(V5/V6)+S(V1)] No previous ECG available for comparison Electronically Signed On 10-18-2022 18:40:46 CDT by Jose Potter M.D. [id number]
[2022-10-18 17:08] VITALS: BP 189/92; PULSE 80; RESP 20; RESP 22; TEMP 36.1; O2SAT 98
[2022-10-18 17:45] LABS: Basophils % 0.5 %; Eosinophils # 0.1 10^3/uL (0.0-0.8); Eosinophils % 1.9 %; Hematocrit 34.5 % (36-47); Lymphocytes # 2.5 10^3/uL (0.8-4.8); Lymphocytes % 38.9 %; Mean Corpuscular HGB Conc 31.6 g/dL (30-55); Mean Corpuscular Hemoglobin 27.7 pg (27-33); Mean Corpuscular Volume 87.6 fl (85-98); Mean Platelet Volume 10.7 fL (7.4-10.4); Monocytes # 0.4 10^3/uL (0.2-0.9); Monocytes % 5.5 %; Neutrophils # 3.38 10^3/uL (1.8-7.7); Nucleated Red Blood Cells % 0 %; Platelet Count 315 10^3/cmm (157-399); Red Blood Count 3.94 10^6/uL (3.85-5.65); Red Cell Distribution Width 15.6 % (12.1-15.1); White Blood Count 6.37 10^3/uL (3.29-11.43)
[2022-10-18 18:00] LABS: Anion Gap 16.2 (5-19); Blood Urea Nitrogen 20 mg/dL (8-23); Calcium 9.1 mg/dL (8.5-10.5); Carbon Dioxide 23 mmol/L (22-29); Chloride 101 mmol/L (98-107); Glomerular Filtration Rate 35.1 mL/min (90-130); Glucose 87 mg/dL (65-115); Osmolality Calculated 286 mOsm/kg (285-295); Potassium 3.2 mmol/L (3.5-5.1); Sodium 137 mmol/L (136-145)
[2022-10-18 19:32] VITALS: BP 160/80; PULSE 70; RESP 16; TEMP 37; O2SAT 97
[2022-10-18 21:01] VITALS: PULSE 83; RESP 18; O2SAT 97
[2022-10-19] VITALS (34 sets, daily range): BP systolic 134–214; BP diastolic 64–107; PULSE 51–97; RESP 10–22; TEMP 36.1–37; O2SAT 90–100
--- NOTE | 2022-10-19 | XR_ITS ---
WS: [id number] Cervical spine, C-arm fluoroscopy views, 10/19/2022 Clinical Data: Posterior fusion c2-t2. or pic Comparison: Operating room cervical spine, 08/10/2022 Findings: Dr. Joaquin performed a posterior cervical thoracic fusion from C2-T2. Impression: Extensive posterior cervical fusion.
[2022-10-19] MEDS: ketorolac 30 mg/mL INJ 15 MG IVP ×2 (00:11→20:54)
[2022-10-19 07:40] LABS: Urine Appearance Hazy (CLEAR); Urine Color Yellow (Yellow)
[2022-10-19 07:41] LABS: Add Urine Culture? Yes; Add Urine Microscopic? YES; Bacteria Urine TRACE /hpf; Bilirubin Urine Neg (Negative); Blood Urine 2+ (Negative); Glucose Urine UA Norm (Normal); Hyaline Casts Urine 0-4 /lpf; Ketones Urine Negative (Negative); Leukocyte Esterase Urine 1+ (Negative); Mucus Urine TRACE /hpf; Nitrate Urine Negative (Negative); Protein Urine Trace (Negative); RBC Urine 0-4 /hpf (0-2); Squamous Epithelial Cell Urine 0-4 /hpf (0-5); Transitional Epi Cells Urine 0-4 /hpf; Urobilinogen Urine Norm (Negative); WBC Urine 15-25 /hpf (0-5); pH Urine 6 (5-7)
--- NOTE | 2022-10-19 07:52 | PC.NURSE ---
Patient taken down to OR at 0730.
--- NOTE | 2022-10-19 07:59 | W.PM.OPSUD ---
Surgery/Procedure H&P Update DATE OF PROCEDURE: October 19, 2022 DATE H&P PERFORMED: 07/21/22 H&P UPDATE INFORMATION: I have reviewed H&P completed within last 30 days, I have examined patient prior to procedure and No changes to prior documentation PREOP DIAGNOSIS: Cervical spondylosis with myelopathy PLANNED PROCEDURE: Operation Date: 10/19/22 08:25 Proposed Procedures p Cervical Posterior Fusion C2-T2(Not Applicable) - Jose Joaquin DO
--- NOTE | 2022-10-19 08:01 | P.ANESASSM_ITS ---
Pre-Anesthetic Assessment Height/Weight: Height 1.63 m Weight 48.251 kg Temp Pulse Resp BP Pulse Ox O2 Del Method 97 F L 69 18 193/102 96 Room Air 10/19/22 07:56 10/19/22 07:56 10/19/22 07:56 10/19/22 07:56 10/19/22 07:56 10/19/22 07:56 Preop Diagnosis: Cervical spondylosis with myelopathy Operation Date: 10/19/22 08:25 Proposed Procedures p Cervical Posterior Fusion C2-T2(Not Applicable) - Jose Joaquin, DO Familial anesthetic complications: none Was Beta Criss taken within 24 hours: N/A Was Clonidine taken within 24 hours: N/A Last intake: Intake Last Liquid Date 10/18/22 Last Liquid Time 23:30 Last Solid Date 10/18/22 Last Solid Time 18:00 Social No alcohol and No tobacco Exam alert, oriented x 3, clear to auscultation bilaterally and regular rate & rhythm Airway Mallampati: Class II Dentition: false Comments: Comments: cervical collar Pulmonary Chronic Obstructive Pulmonary Disease CV/HEM Hypertension Chronic Renal Insufficiency GI Gastroesophageal Reflux Disease Neuropsych Cerebrovascular Accident Anesthetic Plan ASA status: 4 Anesthesia: General Other: glidescope for cervical collar Risk of > 500 ml blood loss (7ml/kg in children): No Medications/Allergies Home Medications Medication Instructions Recorded Confirmed Last Taken Type omeprazole 20 mg capsule,delayed 20 mg PO DAILY 05/28/19 10/18/22 10/17/22 08:30 History release aspirin 81 mg tablet,delayed 81 mg PO DAILY 10/23/19 10/18/22 10/11/22 09:00 History release ([place]anza Low Dose Aspirin) qgixeirttw-mpqoygodrhyai-tyokdpym 1 tab PO .q 2-4 hours PRN migraines 09/09/21 10/18/22 10/16/22 09:00 History 50 mg-325 mg-40 mg tablet (Esgic) methocarbamol 750 mg tablet 750 mg PO Q8H 11/16/21 10/18/22 10/17/22 08:30 History MARIJUANA 1 inh inhalation DAILY 12/15/21 10/18/22 10/18/22 History 1200 albuterol sulfate 90 mcg/actuation 1 inh inhalation Q4H PRN shortness 08/03/22 10/18/22 10/17/22 20:30 History aerosol inhaler (Ventolin HFA) of breath or wheezing atorvastatin 20 mg tablet 20 mg PO DAILY 08/03/22 10/18/22 10/16/22 09:00 History meloxicam 15 mg tablet 15 mg PO DAILY 08/03/22 10/18/22 10/18/22 09:00 History solifenacin 10 mg tablet 10 mg PO DAILY 08/03/22 10/18/22 10/18/22 09:00 History intraoperative neurophysiological #1 ea 08/05/22 10/19/22 Unknown Rx testing hydrocodone 5 mg-acetaminophen 325 1 - 2 tab PO Q4H PRN Post 08/11/22 10/18/22 10/16/22 08:30 Rx mg tablet Operative Pain #40 tabs cyclobenzaprine 10 mg tablet 10 mg PO TID PRN muscle spasm #30 09/29/22 10/18/22 10/17/22 08:30 Rx tabs mirtazapine 15 mg tablet (Remeron) 15 mg PO DAILY #30 tabs 10/05/22 10/18/22 10/17/22 08:30 Rx Allergies Allergy/AdvReac Type Severity Reaction Status Date / Time tetracycline Allergy Unknown unk Verified 10/18/22 13:03 adhesive tape Allergy ALGY-Hives Verified 10/18/22 15:06 sulfamethoxazole Allergy ALGY-Hives Verified 10/18/22 13:03 [From Bactrim] trimethoprim [From Bactrim] Allergy ALGY-Hives Verified 10/18/22 13:03 Current Medications Generic Name Dose Route Start Last Admin Trade Name Freq PRN Reason Stop Dose Admin Ketorolac Tromethamine 15 mg 10/18/22 15:57 10/19/22 00:11 Ketorolac 30 Mg/Ml Inj IVP 10/23/22 15:56 15 mg Q6H PRN Administration MODERATE PAIN PFSH Anesthesia Medical History Chronic kidney disease (CKD) COPD (chronic obstructive pulmonary disease) Essential hypertension History of fracture of wrist right History of skin cancer removed from nose History of stroke Hx of arterial ischemic stroke last one August 2021 Hx of carotid stenosis Insomnia Major depressive disorder, recurrent severe without psychotic features Migraines Neck pain Numbness and tingling Psychiatric care Tobacco dependence Surgical History History of ankle surgery left Hx of colonoscopy with polypectomy 06/28/16 Hx of hysterectomy Hx of knee surgery left lateral release Hx of shoulder surgery bilateral Family History Denies family history of Clotting disorder Anesthesia complication Bleeding disorder Social History Smoking and tobacco status: current every day smoker cigarettes Packs smoked per day: 0.5 Alcohol intake: never Substance/Drug Use: current Substance/Drug use frequency: daily Data Anesthesia 10/18/22 17:21 10/18/22 17:21 Short CBC 10/18/22 Range/Units 17:21 WBC 6.37 (3.29-11.43) 10^3/uL Hgb 10.90 L (11.27-16.99) g/dL Hct 34.5 L (36-47) % MCV 87.6 (85-98) fl Plt Count 315 (157-399) 10^3/cmm Neut % (Auto) 53.0 % Neut # (Auto) 3.38 (1.8-7.7) 10^3/uL BMP 10/18/22 17:21 Sodium 137 Potassium 3.2 L Chloride 101 Carbon Dioxide 23 BUN 20 Creatinine 1.5 H Glucose 87 Calcium 9.1 Urine 10/19/22 Range/Units 07:09 Urine Color Yellow (Yellow) Urine Appearance Hazy A (CLEAR) Urine pH 6 (5-7) Ur Specific [place] 1.010 (1.005-1.030) Urine Protein Trace (Negative) Urine Glucose (UA) Norm (Normal) Urine Ketones Negative (Negative) Urine Nitrate Negative (Negative) Urine Bilirubin Neg (Negative) Ur Leukocyte Esterase 1+ H (Negative) Urine RBC 0-4 H (0-2) /hpf Urine WBC 15-25 H (0-5) /hpf Cardiac Studies: No Data to Display
[2022-10-19] MEDS: sodium chloride 0.9% 1,000 ML 30 ML IV (08:10)
[2022-10-19] MEDS: fentaNYL 50 mcg/mL INJ 2mL IVP ×2 (08:26→12:22)
[2022-10-19] MEDS: ceFAZolin 2,000 MG in sodium chloride 0.9% (plus) 50 ML 100 MG IV ×2 (09:09→16:31)
[2022-10-19] MEDS: vancomycin 1,000 MG SDV 1000 MG INTRA-ARTI (09:51)
[2022-10-19] MEDS: lidocaine-epi 1% 20 mL INJ INJECTION (09:51)
--- NOTE | 2022-10-19 11:56 | PM.OP ---
Operative Report Date of procedure: October 19, 2022 Pre-op diagnosis: Loosening of anterior hardware in cervical spine Post-op diagnosis: same Procedure done: 1. C2-T2 posterior spinal fusion 2. C2-T2 posterior instrumentation 3. Use of computer navigation stereotactic core spine Surgeon: Jose Joaquin DO Microfilm Camera Operator: Juancarlos Napier Microfilm Camera Operator: The neurosurgical nurse practitioner, Juancarlos Napier, PAC was needed for his expertise under the microscope. He was important and necessary throughout the procedure to complete in a safe and timely manner. He assisted with patient positioning prepping and draping tissue retraction suctioning of the operative field protection of the dural sac and tissue closure Estimated blood loss (mL): 25 Procedure: 1. C2-T2 posterior spinal fusion 2. C2-T2 posterior instrumentation 3. Use of computer navigation stereotactic core spine Patient brought the op suite after undergoing anesthesia was placed in the prone position. All his impingement well-padded. Patient was prepped and draped normal sterile fashion. Skin incision made with posterior cervical spine. Subperiosteal dissection was made out from C2 to the lateral masses of C2 all the way down to C7. And T1 and T2 and out to the transverse processes of T1 and T2. She was brought to placing the fiducial on the T2 spinous process. The clamp was attached the fiducial was attached and then the C-arm was brought in and spun around the patient. Information from the C-arm was then brought to the computer and used for computer navigation. Next tension was brought to placing the screws. The attention was first brought to the C2 screws these were pars screws. The drill was used to start the starting point. And then the navigated drill was then used to drill the pars this was done up to 20 mm and a size 22 screw was used. This was done bilaterally. Lateral mass screws were then drilled this was done using a high-speed bur followed by the drill followed by the pedicle feeler followed by placement of the screw. This was done at the lateral masses of C3 bilaterally C4 bilaterally, C5 bilaterally, C6 bilaterally. Next tension was brought to placing the pedicle screws. This was done using the gearshift probe. Gearshift probe was passed through the pedicle. Measured pedicle feeler was used and then a computer navigated screw was then placed at the pedicle of T1 bilaterally and T2 bilaterally. She was brought to attaching the rods the harriet was attached from C2 down to T2 these rods were attached bilaterally screw caps were placed locked and torqued in position. Wounds were irrigated. The lamina and spinous processes were bit bit off and high-speed bur was used to decorticate the lamina as well in order to facilitate fusion. Ostium bone graft was then packed and used to complete the fusion mass. The drain was placed the vancomycin powder was placed wound was closed in layered fashion from 0 Vicryl 2-0 Vicryl and Monocryl suture. Sterile dressings were applied patient was transferred to the PACU in stable condition.
[2022-10-19] MEDS: hyDRALAzine 20 mg/mL INJ 1 mL 5 MG IVP (12:40)
[2022-10-19] MEDS: HYDROmorphone 1 mg/mL INJ 1 mL 0.5 MG IVP (12:57)
--- NOTE | 2022-10-19 13:04 | PC.NURSE ---
1257 - DR NARANJO NOTIFIED PER THIS NURSE THAT NO RELIEF OF POSTERIOR NECK PAIN NOTED PER PT AFTER IVP FENTANYL 50MCG - ORDERED PER DR TO GIVE DILAUDID PER ANESTHESIA PACU PHASE 1 ORDERS
--- NOTE | 2022-10-19 13:20 | ANE.PACU2 ---
Inpatient post-anesthesia follow up: Airway intact: Yes Vital signs: Temperature 97.0 F Pulse Rate 63 Respiratory Rate 11 Blood Pressure 172/82 Pulse Oximetry 90 Oxygen Delivery Me thod Room Air Oxygen Flow Rate 6 Fraction of Inspir ed Oxygen Hydration adequate: Yes Nausea and vomiting: No Pain level: 1 Mental status: Baseline
--- NOTE | 2022-10-19 13:39 | PC.NURSE ---
Patient returns from OR. VSS. Significant other at bedside. Hemovac present to posterior neck with bloody drng.
[2022-10-19] MEDS: lactated ringers 1,000 ML 90 ML IV (13:49)
[2022-10-19] MEDS: methocarbamol 750 mg Tablet PO (14:18)
[2022-10-19] MEDS: docusate sodium 100 mg Capsule PO (16:30)
[2022-10-19] MEDS: cyclobenzaprine 10 mg Tablet PO (16:42)
[2022-10-19] MEDS: HYDROcodone-acetaminophen 10-325 mg Tablet PO (20:55)
[2022-10-20] MEDS: lactated ringers 1,000 ML 90 ML IV (00:53)
[2022-10-20] MEDS: HYDROcodone-acetaminophen 10-325 mg Tablet PO ×2 (00:54→09:50)
[2022-10-20] MEDS: ceFAZolin 2,000 MG in sodium chloride 0.9% (plus) 50 ML 100 MG IV ×2 (00:54→09:28)
[2022-10-20 04:00] VITALS: BP 152/77; PULSE 75; RESP 17; TEMP 36.9; O2SAT 98
--- NOTE | 2022-10-20 07:32 | P.PN_ITS ---
Subjective Subjective: POD 1 Patient resting comfortably. Denies any chest pain, shortness of breath or headaches. Vitals/I&O/Wt Last Vital Signs Temp 98.4 F 10/20/22 04:00 Pulse 75 10/20/22 04:00 Resp 17 10/20/22 04:00 BP 152/77 10/20/22 04:00 Pulse Ox 98 10/20/22 04:00 O2 Del Method Room Air 10/20/22 04:00 O2 Flow Rate 6 10/19/22 11:56 10/19/22 10/20/22 10/20/22 22:59 06:59 14:59 Intake Total 170 / 1270 1286 / 2556 Output Total 180 / 830 55 / 885 Balance -10 / 440 1231 / 1671 Weight last 48 hrs Weight 106 lb 6 oz Physical Exam Narrative: Patient is alert and oriented x3 with a good general appearance normal mood and affect. Mildly tender with palpation about the incisional site. Incision appears to be clean and dry with Hemovac present without signs of erythema or drainage. No signs of infection. Good motor strength throughout both upper extremities. Appears to fire in all motor groups with 5/5 strength. Hands are warm good cap refill in all digits. Normal sensation to light touch in all dermatomal areas. Urinary Catheter Management: Adamson: Cath Placed During This Visit: yes Reason for Continuing Indwelling Catheter: Perioperative Use in Selected Surgeries Urinary Catheter Date of Insertion: 10/19/22 Urinary Catheter Time of Insertion: 09:20 Data 10/18/22 17:21 10/18/22 17:21 A&P Assessment and plan (1) Status post cervical spinal fusion: Physical therapy to work with mobilization. We will discontinue Hemovac drain and Adamson catheter. Discussed with the patient to continue incentive spirometer at home. Will discharge home later today. We will have her follow-up in the office in 1 week's time. Discussed at length smoking cessation. No bending lifting or twisting continue wearing the Toutiao J collar. (2) Tobacco dependence: Attestations Medical Necessity Statement*: Discharge home later this morning Coding Level of Care Code Acute Code for Chg Fwd Diagnoses Status post cervical spinal fusion Z98.1 Tobacco dependence F17.200
[2022-10-20 07:37] VITALS: BP 192/86; PULSE 80; RESP 18; TEMP 36.7; O2SAT 92
[2022-10-20] MEDS: docusate sodium 100 mg Capsule PO (09:29)
[2022-10-20] MEDS: meloxicam 7.5 mg tablet 15 MG PO (09:29)
[2022-10-20] MEDS: atorvastatin 40 mg Tablet 20 MG PO (09:29)
[2022-10-20] MEDS: pantoprazole DR 40 mg Tablet PO (09:29)
[2022-10-20] MEDS: aspirin 81 mg EC Tablet PO (09:29)
[2022-10-20 09:36] VITALS: PULSE 83; RESP 16; O2SAT 99
--- NOTE | 2022-10-20 09:47 | PC.NURSE ---
Drain from neck removed. Intact and patient tolerated well.
--- NOTE | 2022-10-20 10:58 | PC.CHAP ---
Pastoral Care Encounter/Spiritual Assessment Type of Contact [x] Declined school age lead teacher visit [] Patient/Family/Request visit [] Outpatient visit [] Follow-up visit [] Physician referral [] Code/Alert [] Routine visit [] Staff referral [] Actively dying [] Patient sleeping [] Family support [] [] Out of room [] Palliative care [] [] Receiving care in room [] Pre-surgical visit [] Trauma [] Long length of stay [] ICU visit [] Other: Relational/Emotional Strength [x] Patient feels connected with others/family/visitors/staff [] Distress [] Loneliness/isolation [] Abandonment Spirituality of Patient [] Person of Gabriela [] Attends Yazdanism of their Gabriela [] Believes in Prayer [] Reads Bible or Orthodox materials [] There are Spiritual issues to be addressed Bill Clerk Interventions [] Prayer [] Active listening [] Non-anxious presence [] Spiritual/emotional support [] Crisis/trauma care [] Spiritual counseling [] Bereavement support [] Provided bereavement packet [] Provided Bible/devotional materials [] Provided toy/stuffed animal, coloring book to patient or family member [] Provided Communion [] Anointing/[place] [] Salvation [] Completed spiritual assessment [] Other: Impact on Illness or Injury [] Angry [] Fearful [] Anxious [] Often cries [] Exhaustion [] Unable to work [] Unable to attend anabaptist [] Unable to walk/stand [] Unable to read [] Unable to drive [] Unable to eat/drink [] Unable to sleep [] Unable to be with family [] Patient intubated [] Other: Summary Declined school age lead teacher visit Time spent with patient 5 mins
[2022-10-20] MEDS: ketorolac 30 mg/mL INJ 15 MG IVP (11:54)
--- NOTE | 2022-10-24 06:30 | P.DS_ITS ---
Discharge Providers Date of Admission: 10/18/22 14:39 Date of Discharge: October 20, 2022 Attending Provider at Admission: Jose Joaquin DO Attending Provider at Discharge: Jose Joaquin DO Primary Care Provider: Wilbur Dupont MD Diagnoses at Discharge Discharge Diagnosis (1) Status post cervical spinal fusion: Status: Acute (2) Tobacco dependence: Status: Acute Reason for Visit Reason for Visit: Cervical Spondilosos Physical Exam Urinary Catheter Management: Adams[place]: Cath Placed During This Visit: yes, but has since been removed by the nurse Reason for Continuing Indwelling Catheter: Decision to DC Catheter Urinary Catheter Date of Insertion: 10/19/22 Urinary Catheter Time of Insertion: 09:20 Date Urinary Catheter Removed: 10/20/22 Time Urinary Catheter Discontinued: :42 Discharge Data Studies Completed and Pending Completed Studies During Hospitalization Category Date Time Status XR cervical spine 3V* 91900 Routine Exams 10/19/22 Completed Laboratory Results WBC 6.37 10^3/uL (3.29-11.43) 10/18/22 17:21 RBC 3.94 10^6/uL (3.85-5.65) 10/18/22 17:21 Hgb 10.90 g/dL (11.27-16.99) L 10/18/22 17:21 Hct 34.5 % (36-47) L 10/18/22 17:21 MCV 87.6 fl (85-98) 10/18/22 17:21 MCH 27.7 pg (27-33) 10/18/22 17:21 MCHC 31.6 g/dL (30-55) 10/18/22 17:21 RDW 15.6 % (12.1-15.1) H 10/18/22 17:21 Plt Count 315 10^3/cmm (157-399) 10/18/22 17:21 MPV 10.7 fL (7.4-10.4) H 10/18/22 17:21 Neut % (Auto) 53.0 % 10/18/22 17:21 Lymph % (Auto) 38.9 % 10/18/22 17:21 [place] % (Auto) 5.5 % 10/18/22 17:21 Eos % (Auto) 1.9 % 10/18/22 17:21 Baso % (Auto) 0.5 % 10/18/22 17:21 Neut # (Auto) 3.38 10^3/uL (1.8-7.7) 10/18/22 17:21 Lymph # (Auto) 2.5 10^3/uL (0.8-4.8) 10/18/22 17:21 [place] # (Auto) 0.4 10^3/uL (0.2-0.9) 10/18/22 17:21 Eos # (Auto) 0.1 10^3/uL (0.0-0.8) 10/18/22 17:21 Baso # (Auto) 0.0 10^3/uL (0.0-0.1) 10/18/22 17:21 Nucleated RBC % (auto) 0 % 10/18/22 17:21 Nucleated RBCs # 0.0 /100WBC 10/18/22 17:21 Sodium 137 mmol/L (136-145) 10/18/22 17:21 Potassium 3.2 mmol/L (3.5-5.1) L 10/18/22 17:21 Chloride 101 mmol/L (98-107) 10/18/22 17:21 Carbon Dioxide 23 mmol/L (22-29) 10/18/22 17:21 Anion Gap 16.2 (5-19) 10/18/22 17:21 BUN 20 mg/dL (8-23) 10/18/22 17:21 Creatinine 1.5 mg/dL (0.5-0.9) H 10/18/22 17:21 GFR Calculation 35.1 mL/min (90-130) L 10/18/22 17:21 Glucose 87 mg/dL (65-115) 10/18/22 17:21 Calculated Osmolality 286 mOsm/kg (285-295) 10/18/22 17:21 Calcium 9.1 mg/dL (8.5-10.5) 10/18/22 17:21 Urine Color Yellow (Yellow) 10/19/22 07:09 Urine Appearance Hazy (CLEAR) A 10/19/22 07:09 Urine pH 6 (5-7) 10/19/22 07:09 Ur Specific [place] 1.010 (1.005-1.030) 10/19/22 07:09 Urine Protein Trace (Negative) 10/19/22 07:09 Urine Glucose (UA) Norm (Normal) 10/19/22 07:09 Urine Ketones Negative (Negative) 10/19/22 07:09 Urine Blood 2+ (Negative) H 10/19/22 07:09 Urine Nitrate Negative (Negative) 10/19/22 07:09 Urine Bilirubin Neg (Negative) 10/19/22 07:09 Urine Urobilinogen Norm mg/dL (Negative) 10/19/22 07:09 Ur Leukocyte Esterase 1+ (Negative) H 10/19/22 07:09 Urine RBC 0-4 /hpf (0-2) H 10/19/22 07:09 Urine WBC 15-25 /hpf (0-5) H 10/19/22 07:09 Ur Squamous Epith Cells 0-4 /hpf (0-5) H 10/19/22 07:09 Ur Transition Epith Cell 0-4 /hpf 10/19/22 07:09 Amorphous Sediment Not Reportable 10/19/22 07:09 Urine Bacteria Trace /hpf (NONE) 10/19/22 07:09 Hyaline Casts 0-4 /lpf H 10/19/22 07:09 Urine Mucus Trace /hpf 10/19/22 07:09 Vitals Last Vital Signs Temp 98.0 F 10/20/22 07:37 Pulse 83 10/20/22 09:36 Resp 16 10/20/22 09:36 BP 192/86 10/20/22 07:37 Pulse Ox 99 10/20/22 09:36 O2 Del Method Room Air 10/20/22 09:36 O2 Flow Rate 6 10/19/22 11:56 Discharge Plan Discharge Patient Disposition: Home Condition: Stable Prescriptions: New hydrocodone-acetaminophen 10-325 mg Tablet 1 - 2 tab PO .q4-6hrs PRN (Reason: Post Operative pain) Qty: 30 0RF Continued omeprazole 20 mg capsule,delayed release(DR/EC) 20 mg PO DAILY MARIJUANA 1 inh inhalation DAILY cstsrgozdp-bqejljxebdxzp-jgkz [Esgic] 50-325-40 mg tablet 1 tab PO .q 2-4 hours PRN (Reason: migraines) methocarbamol 750 mg tablet 750 mg PO Q8H atorvastatin 20 mg tablet 20 mg PO DAILY meloxicam 15 mg tablet 15 mg PO DAILY albuterol sulfate [Ventolin HFA] 90 mcg/actuation HFA aerosol inhaler 1 inh inhalation Q4H PRN (Reason: shortness of breath or wheezing) solifenacin 10 mg tablet 10 mg PO DAILY cyclobenzaprine 10 mg tablet 10 mg PO TID PRN (Reason: muscle spasm) Qty: 30 0RF mirtazapine [Remeron] 15 mg tablet 15 mg PO DAILY Qty: 30 3RF aspirin [Es[place]anza Low Dose Aspirin] 81 mg Tablet,Delayed Release (Dr/Ec) 81 mg PO DAILY (DME) intraoperative neurophysiological testing See Rx Instructions .Route .MEDSUPPLY Qty: 1 0RF Rx Instructions: As directed hydrocodone-acetaminophen 5-325 mg Tablet 1 - 2 tab PO Q4H PRN (Reason: Post Operative Pain) Qty: 40 0RF Discharge Orders: Discharge Order (Routine); Ordered 10/20/22 Ordered By: Juancarlos Napier Referrals: Jose Joaquin DO [Physician] - 10/27/22 1:15 pm (PLEASE ARRIVE 15 MINUTES PRIOR TO APPOINTMENT. ) Wilbur Dupont MD [Primary Care Provider] - 10/24/22 11:00 am Discharge Diet: Advance as tolerated Discharge Activity: Limit activity as instructed Patient Instructions: Hydrocodone/Acetaminophen (By mouth), How to Stop Smoking (DC), Cigarette Smoking and Your Health (GEN), Lumbar Spinal Fusion (GEN), Opioid Safety Activity Restrictions/Additional Instructions: Thank you for choosing [facility] for your care! The following is a list of instructions, from your provider, to follow upon your discharge to ensure you have the optimal recovery from your recent injury or surgery. Anterior/posterior cervical fusion: What to Expect at Home Your Recovery Follow-up care is a neri part of your treatment and safety. Be sure to make and go to all appointments, and call your doctor if you are having problems. If you do not already have a follow-up appointment made, call office in the next 1-3 days to make follow up appointment for 1 weeks at [phone]. It is also a good idea to know your test results and keep a list of the medicines you take. You can expect your neck to feel stiff or sore after surgery. This should improve in the weeks after surgery. But it may take 4 to 6 months for you to get better completely. You may have trouble sitting or standing in one position for very long and may need pain medicine in the weeks after your surgery. It may take 4 to 6 weeks to get back to your usual activities, but it may depend on what kind of surgery you had. Your throat will feel sore and it may be difficult to swallow for the first 3 days after your surgery. As long as you can get liquids down without difficulty, this should slowly improve, otherwise call our office or seek medical attention if it becomes increasingly difficult to get anything down including liquids. Avoid hot liquids for first 3-5 days. Soothing foods/liquids such as jello, pudding, and luke warm soups are recommended until swallowing improves. Staying elevated will also help, it's advised you keep propped up at while sleeping to help reduce the swelling. You may use an ice pack directly on your incision or around it on the front of your neck, using a cloth to protect your skin; and a heating pad to the back of your neck as needed. Do not use over the counter anti-inflammatory medications (Ibuprofen, Motrin, Aleve, Advil, etc) Taking these meds after having a fusion can delay fusion rates, we recommend you avoid them for the first 3 [address] after your surgery[address] Dr. Joaquin may advise you to work with a physical therapist to strengthen the muscles around your neck and back - this will be discussed at your follow - up appointments. The pain or numbness you were having in your arms before surgery should get better or go away completely. This care sheet gives you a general idea about how long it will take for you to recover. But each person recovers at a different pace. Follow the steps below to get better as quickly as possible. How can you care for yourself at home? Activity ? Rest when you feel tired. Getting enough sleep will help you recover. ? Try to walk each day. Start by walking a little more than you did the day before. Bit by bit, increase the amount you walk. Walking boosts blood flow and helps prevent pneumonia and constipation. Walking may also decrease your muscle soreness after surgery. ? No lifting anything that is more that 5 pounds. This may include heavy grocery bags and milk containers, a heavy briefcase or backpack, cat litter or dog food bags, a child, or a vacuum shirt cleaner. ? Avoid strenuous activities, such as bicycle riding, jogging, weightlifting, or aerobic exercise, until your doctor says it is okay. ? Do not drive until your follow-up visit after your surgery, or until your doctor says it isokay. ? Avoid taking long car trips for 2 to 4 weeks after surgery. Your neck may become tired and painful from sitting too long in one position. ? You will probably need to take 4 to 6 weeks off from work. It depends on the type of work you do and how you feel. ? You may have sex as soon as you feel able, but avoid positions that put stress on your neck or cause pain. Diet ? You can eat your normal diet. If your stomach is upset, try bland, low-fat foods like plain rice, broiled chicken, toast, and yogurt ? Drink plenty of fluids. If you have kidney, heart, or liver disease and have to limit fluids, talk with your doctor before you increase the amount of fluids you drink. ? You may notice that your bowel movements are not regular right after your surgery. This is common. Try to avoid constipation and straining with bowel movements. You may want to take a fiber supplement every day. If you have not had a bowel movement after a couple of days, ask your doctor about taking a mild laxative. Medicines ? Take pain medicines exactly as directed. 1. If Dr. Joaquin gave you a prescription medicine for pain, take lt as prescribed. 2. Do not take two or more pain medicines at the same time unless the doctor told you to. Many pain medicines have acetaminophen, which is Tylenol. Too much acetaminophen {Tylenol) can be harmful. 3. If you think your pain pill is making you sick to your stomach: 4. Take your pills after meals (unless your doctor has told you not to). 5. Ask your Dr. for a different pain pill. Incisioncare ? Remove your dressing 48 hours after your surgery. Ok to shower and get the incision wet. Do not overtly wash your incision. When done, pad dry, leave open to air thereafter. Avoid creams and ointments directly on your incision. ? Your sutures in the incision will dissolve and fall out on their own. ? Keep the area clean and dry. You may cover it with a gauze bandage if it weeps or rubs against clothing; if you choose to do this, change the dressing everyday. Other instructions ? Use a heating pad, hot water bottle, or gentle massage on your back to reduce stiffness. Avoid putting heat on your incision When should you call for help? ? Call 911 anytime you think you may need emergency care. For example, call if: ? You pass out (lose consciousness). ? You have sudden chest pain and shortness of breath, or you cough upblood. ? You cannot swallow. ? You have severe pain in your neck or back. ? Call your Dr. or seek immediate medical care if: ? You have pain that does not get better after you take pain pills. ? You have loose stitches, or your incision comes open. ? You have blood or fluid draining from the incision. ? You have signs of infection, such as: 1. Increased pain, swelling, warmth, or redness. 2. Red streaks leading from the site. 3. Pus draining from the site. 4. Swollen lymph nodes in your neck or armpits. 5. A fever. ? You have severe pain in your arms. ? You have new or increased weakness or numbness in your arms. ? Watch closely for any changes in your health, and be sure to contact your doctor if: ? You do not have a bowel movement after taking a laxative. Discharge Attestations Time Spent in Discharge Care*: less than 30 min Quality Metrics Clinical Quality Measures [ No reported AMI, CVA or VTE this stay] Coding Level of Care Code Acute Code for Chg Fwd Diagnoses Status post cervical spinal fusion Z98.1 Tobacco dependence F17.200
== END 2022-10-20 13:19 | disposition home or self-care (01) | DRG 460 ==
PROVIDERS: Physician Assistant; Admitting Provider Orthopaedic Surgery; PCP Family Medicine; Visit Provider Orthopaedic Surgery
PROC: 0RG60J1 Fusion of Thoracic Vertebral Joint with Synthetic Substitute, Posterior Approach, Posterior Column, Open Approach (ICD-10-PCS; CPT 22600; principal; 2022-10-19 08:25)
DX: T84.226A Displacement of internal fixation device of vertebrae, initial encounter (principal); F33.9 Major depressive disorder, recurrent, unspecified; M47.12 Other spondylosis with myelopathy, cervical region; Y79.8 Miscellaneous orthopedic devices associated with adverse incidents, not elsewhere classified; N18.9 Chronic kidney disease, unspecified; I12.9 Hypertensive chronic kidney disease with stage 1 through stage 4 chronic kidney disease, or unspecified chronic kidney disease; J44.9 Chronic obstructive pulmonary disease, unspecified; Z85.828 Personal history of other malignant neoplasm of skin; Z86.73 Personal history of transient ischemic attack (TIA), and cerebral infarction without residual deficits; F17.210 Nicotine dependence, cigarettes, uncomplicated; Z98.1 Arthrodesis status; Z79.51 Long term (current) use of inhaled steroids; Z79.82 Long term (current) use of aspirin; Z79.891 Long term (current) use of opiate analgesic
CPT/HCPCS: 51702; 72040; 76000; 80048; 81001; 85025; 87086; 93005; 97110; 97161; 97760; C1713; J0360; J0690; J1100; J1170; J1885; J2250; J2405; J2704; J3010; J3370; J3490; J7030; J7120; L0174; P9045

== ENCOUNTER → 2022-10-27 13:04 | Outpatient (BNVA) | payer MEDICAID, SELFPAY | PROVIDERS: PCP Family Medicine; Visit Provider Orthopaedic Surgery | DX: Z98.1 Arthrodesis status (principal); Z47.89 Encounter for other orthopedic aftercare | CPT/HCPCS: 99024 ==

== ENCOUNTER → 2022-11-03 15:39 | Outpatient (BNVA) | payer MEDICAID, SELFPAY | PROVIDERS: PCP Family Medicine; Visit Provider Orthopaedic Surgery | DX: Z47.89 Encounter for other orthopedic aftercare (principal); Z98.1 Arthrodesis status | CPT/HCPCS: 99024 ==

== ENCOUNTER → 2022-12-08 10:20 | Outpatient (BNVA) | payer MEDICAID, SELFPAY | PROVIDERS: PCP Family Medicine; Visit Provider Orthopaedic Surgery | DX: Z98.1 Arthrodesis status (principal); Z47.89 Encounter for other orthopedic aftercare | CPT/HCPCS: 72040; 99024; 99213 ==

== ENCOUNTER → 2023-03-24 14:56 | Outpatient (BNVA) | payer MEDICAID, SELFPAY | PROVIDERS: PCP Family Medicine; Visit Provider Orthopaedic Surgery | DX: Z47.89 Encounter for other orthopedic aftercare (principal); Z98.1 Arthrodesis status; M62.838 Other muscle spasm; R51.9 Headache, unspecified | CPT/HCPCS: 72040; 99213 ==

== ENCOUNTER → 2024-02-29 15:23 | Outpatient (BNVA) | payer MEDICARE, MEDICAID, SELFPAY | PROVIDERS: PCP Family Medicine; Visit Provider Orthopaedic Surgery | DX: M54.2 Cervicalgia (principal); Z98.1 Arthrodesis status | CPT/HCPCS: 72040; 99213 ==

== ENCOUNTER → 2024-06-13 16:13 | Outpatient (BNVA) | payer MEDICARE, MEDICAID, SELFPAY | PROVIDERS: PCP Family Medicine; Visit Provider Orthopaedic Surgery | DX: Z98.1 Arthrodesis status (principal) | CPT/HCPCS: 72050; 99213 ==

== ENCOUNTER 2024-07-02 10:43 | Outpatient (CLI) | payer OTHER, MEDICAID, SELFPAY ==
--- NOTE | 2024-07-02 11:00 | CT_ITS ---
WS: [id number] CT CERVICAL SPINE TECHNIQUE: Noncontrast CT of the cervical spine with coronal and sagittal reformatted images. CLINICAL INFORMATION: neck pain COMPARISON: 2022 DLP: 145.[address] scans at [facility] use at least one of these dose optimization techniques: automated exposure control; mA and/or kV adjustment per patient size (includes targeted exams where dose is matched to clinical indication); or iterative reconstruction. FINDINGS: Straightening of the normal cervical lordosis. ACDF C2-C6. Partial corpectomy at C3 with interbody strut graft. Since the prior examination posterior element fusion is new with screw fixation and interconnecting rods extending from C2-T2. Posterior interconnecting harriet appears intact. Lucency along the bilateral T2 pedicle fixation screws suspicious for loosening. Fracture of the LEFT T1 fixation screw. This is indicated in the bookmark images. Posterior element screws otherwise appear intact. Anterior fixation screws appear intact. Stable retrolisthesis C2 on C3 unchanged. Interbody fusion graft material has matured since previous. Solid-appearing interbody bony fusion at C5-6. Incomplete fusion at C4-5. C2-C3: Normal. C3-C4: Moderate RIGHT bony foraminal narrowing. C4-C5: Mild RIGHT bony foraminal narrowing. C5-C6: Mild RIGHT greater than LEFT bony foraminal narrowing. Mild facet arthropathy. C6-C7: Mild LEFT greater than RIGHT bony foraminal narrowing. C7-T1: Spinal canal and foramen are patent. Visualized posterior nasopharynx: Normal. Prevertebral soft tissues: Normal. Inflammatory opacities in the lung apices. CT/CT cervical spin wo con* [id number] IMPRESSION: 1. Moderate RIGHT C3-4 bony foraminal narrowing. 2. Posterior element fusion pedicle screw fixation extending from C2-T2 is new from previous. 3. Loosening of the T2 pedicle screws. 4. Fracture of the LEFT T1 pedicle screw. 5. Incomplete interbody fusion C4-5. Solid-appearing interbody fusion C5-C6. 6. Stable slight retrolisthesis C2 on the strut graft.
== END 2024-07-02 10:44 | disposition home or self-care (01) ==
LOC: RAD 10:45
PROVIDERS: PCP Family Medicine; Visit Provider Orthopaedic Surgery
DX: Z98.1 Arthrodesis status (principal); R93.7 Abnormal findings on diagnostic imaging of other parts of musculoskeletal system; T84.216A Breakdown (mechanical) of internal fixation device of vertebrae, initial encounter; X58.XXXA Exposure to other specified factors, initial encounter; M48.02 Spinal stenosis, cervical region; M96.89 Other intraoperative and postprocedural complications and disorders of the musculoskeletal system; M47.892 Other spondylosis, cervical region; R91.8 Other nonspecific abnormal finding of lung field
CPT/HCPCS: 72125

== ENCOUNTER → 2024-07-18 13:00 | Outpatient (BNVA) | payer OTHER, MEDICAID, SELFPAY | PROVIDERS: PCP Family Medicine; Visit Provider Orthopaedic Surgery | DX: Z09 Encounter for follow-up examination after completed treatment for conditions other than malignant neoplasm (principal) | CPT/HCPCS: 99213 ==

== ENCOUNTER → 2024-09-05 15:15 | Outpatient (BNVA) | payer OTHER, MEDICAID, SELFPAY | PROVIDERS: PCP Family Medicine; Referring Provider Orthopaedic Surgery; Visit Provider Specialist | DX: R20.0 Anesthesia of skin (principal); R20.2 Paresthesia of skin | CPT/HCPCS: 95911 ==

== ENCOUNTER → 2024-09-26 14:40 | Outpatient (BNVA) | payer OTHER, MEDICAID, SELFPAY | PROVIDERS: PCP Family Medicine; Visit Provider Orthopaedic Surgery | DX: G56.03 Carpal tunnel syndrome, bilateral upper limbs (principal) | CPT/HCPCS: 99214 ==

== ENCOUNTER → 2024-11-13 11:24 | Outpatient (BNVA) | payer OTHER, MEDICAID, SELFPAY | PROVIDERS: PCP Family Medicine; Visit Provider Physician Assistant | DX: G56.03 Carpal tunnel syndrome, bilateral upper limbs (principal); G56.23 Lesion of ulnar nerve, bilateral upper limbs | CPT/HCPCS: 73110; 99204 ==

== ENCOUNTER 2024-12-26 06:22 | Day surgery (SDC) | payer OTHER, MEDICAID, SELFPAY ==
[2024-12-26] VITALS (10 sets, daily range): BP systolic 99–184; BP diastolic 72–92; PULSE 57–87; RESP 10–17; TEMP 36.5–36.9; O2SAT 94–98; BMI 20.5
[2024-12-26] MEDS: acetaminophen 1,000 MG/100 ML PIGGYBACK 400 MG IV (07:07)
--- NOTE | 2024-12-26 07:13 | W.PM.OPSFHP ---
Same Day Surgery H&P Indication for Procedure/HPI DATE OF PROCEDURE: December 26, 2024 CHIEF COMPLAINT/INDICATIONFOR SURGICAL PROCEDURE: Right carpal tunnel syndrome, right cubital tunnel syndrome PREOP DIAGNOSIS: Right carpal tunnel syndrome, right cubital tunnel PLANNED PROCEDURE: Operation Date: 12/26/24 08:00 Proposed Procedures p RIGHT Carpal Tunnel Release(Right) - Edin Bergen, DO s RIGHT Cubital Tunnel Release(Right) - Edin Mey, DO s POSSIBLE Ulnar Nerve Transposition(Right) - Edin Mey, DO Medications/Allergies* Home Medications ?Medication ?Instructions ?Recorded ?Confirmed ?Type omeprazole 20 mg capsule,delayed 20 mg PO DAILY 05/28/19 12/25/24 History release aspirin 81 mg tablet,delayed 81 mg PO DAILY 10/23/19 12/25/24 History release ([place] Low Dose Aspirin) ujlxgudykp-kqulhpjkhjlep-lagcsbpi 1 tab PO .q 2-4 hours PRN migraines 09/09/21 12/25/24 History 50 mg-325 mg-40 mg tablet (Esgic) MARIJUANA 1 inh inhalation DAILY 12/15/21 12/25/24 History albuterol sulfate 90 mcg/actuation 1 inh inhalation Q4H PRN shortness 08/03/22 12/25/24 History aerosol inhaler (Ventolin HFA) of breath or wheezing atorvastatin 20 mg tablet 20 mg PO DAILY 08/03/22 12/25/24 History meloxicam 15 mg tablet 15 mg PO DAILY 08/03/22 12/25/24 History solifenacin 10 mg tablet (Vesicare) 10 mg PO DAILY 08/03/22 12/25/24 History mirtazapine 30 mg tablet (Remeron) 30 mg PO .hs 12/25/24 12/25/24 History vortioxetine 10 mg tablet 10 mg PO DAILY 12/25/24 12/25/24 History (Trintellix) Allergies/Adverse Reactions Allergy/AdvReac Type Severity Reaction Status Date / Time tetracycline Allergy Unknown unk Verified 12/26/24 06:37 adhesive tape Allergy ALGY-Hives Verified 12/26/24 06:37 sulfamethoxazole (From Allergy ALGY-Hives Verified 12/26/24 06:37 Bactrim) trimethoprim (From Bactrim) Allergy ALGY-Hives Verified 12/26/24 06:37 Pertinent History/Comorbid Conditions* Medical History (Updated 11/13/24 @ 12:04 by LAUREN Hewitt) Hx of carotid stenosis Tobacco dependence Essential hypertension Chronic kidney disease (CKD) Hx of arterial ischemic stroke last one August 2021 COPD (chronic obstructive pulmonary disease) History of stroke History of fracture of wrist right History of skin cancer removed from nose Insomnia Migraines Neck pain Numbness and tingling Psychiatric care Major depressive disorder, recurrent severe without psychotic features Surgical History (Updated 02/01/23 @ 00:01 by ERIKA Tomas) Hx of colonoscopy with polypectomy 06/28/16 Hx of hysterectomy History of ankle surgery left Hx of knee surgery left lateral release Hx of shoulder surgery bilateral Family History (Updated 08/03/22 @ 10:42 by Red Dow NP) Denies family history of Clotting disorder Anesthesia complication Bleeding disorder Social History Smoking and tobacco/nicotine status: current some day tobacco/nicotine user cigarettes Packs smoked per day: 0.5 Alcohol intake: never Substance/Drug Use: current Substance/Drug use frequency: daily Pertinent Exam Findings alert, oriented x 3, operative site marked and procedure specific exam findings Today examination patient has positive Tinel's over the carpal tunnel and cubital tunnel with reproducible symptoms in the median and ulnar nerve distribution. Please refer to heart and lung findings from the preoperative evaluation by the anesthesia team. Please refer to detailed orthopedic examination on 11/13/2024 bilateral Hand exam-positive Tinel's and positive Phalen's test. thenar atrophy and thenar muscle weakness noted. Full range of motion in fingers and wrist and fingers are warm and well-perfused with normal cap refill under 2 seconds. Radial pulse 2+, intrinsic muscle weakness noted. bilateral Elbow exam-positive Tinel's test Recommendations Risks and benefits of procedure reviewed and Patient/family agree to proceed Surgery/Procedure today Other Plans: Plan to proceed to the OR today for right carpal tunnel release and right cubital tunnel release with possible ulnar nerve transposition. Patient understands the ins and outs of the procedure the risk the benefits complication alternatives with surgical nonsurgical treatment options. Understanding risk of surgery patient elects proceed with surgical intervention. All questions answered at this time. Once again she understands the recovery of nerves and that this may not have full recovery and understands that her nerve study showed a normal finding for the ulnar nerve at the elbow however she does have significant symptoms on Tinel's examination reproducible through the ulnar nerve distribution. At this point in time through shared decision making she understands and ready to proceed with surgical intervention all questions answered at this time. And wished to have both the carpal and cubital release at the same time all questions answered. Coding Level of Care Code Acute Code for Jovanni Baca
--- NOTE | 2024-12-26 07:28 | SUR.PREOP ---
Supraclaviclur block preformed in preop by dr cabral using 20ml 0.5% ropivicaine
--- NOTE | 2024-12-26 07:31 | ANES.PREANE2 ---
Pre-Anesthetic Assessment Height/Weight: Height 1.63 m Weight 54.431 kg Temp Pulse Resp BP Pulse Ox O2 Del Method 97.9 F 87 17 162/92 94 Room Air 12/26/24 06:36 12/26/24 06:36 12/26/24 06:36 12/26/24 06:36 12/26/24 06:36 12/26/24 06:39 Preop Diagnosis: Right carpal tunnel syndrome, right cubital tunnel Operation Date: 12/26/24 08:00 Proposed Procedures p RIGHT Carpal Tunnel Release(Right) - Edin Mey, DO s RIGHT Cubital Tunnel Release(Right) - Edin Mey, DO s POSSIBLE Ulnar Nerve Transposition(Right) - Edin Bartholomew, DO Familial anesthetic complications: None Was Beta Criss taken within 24 hours: N/A Was Clonidine taken within 24 hours: N/A Last intake: Intake Last Liquid Date 12/25/24 Last Liquid Time 23:59 Last Solid Date 12/25/24 Last Solid Time 20:00 Social Tobacco and No alcohol Exam alert, oriented x 3, clear to auscultation bilaterally and regular rate & rhythm Pulmonary Chronic Obstructive Pulmonary Disease Chronic Renal Insufficiency Anesthetic Plan ASA status: 3 Anesthesia: General and Regional (specify below) Risk of > 500 ml blood loss (7ml/kg in children): No Medications/Allergies Home Medications ?Medication ?Instructions ?Recorded ?Confirmed ?Last Taken ?Type omeprazole 20 mg capsule,delayed 20 mg PO DAILY 05/28/19 12/25/24 12/24/24 History release aspirin 81 mg tablet,delayed 81 mg PO DAILY 10/23/19 12/25/24 12/24/24 History release ([place] Low Dose Aspirin) [id number]-[id number] 1 tab PO .q 2-4 hours PRN migraines 09/09/21 12/25/24 10/16/22 09:00 History 50 mg-325 mg-40 mg tablet (Esgic) MARIJUANA 1 inh inhalation DAILY 12/15/21 12/25/24 12/24/24 History albuterol sulfate 90 mcg/actuation 1 inh inhalation Q4H PRN shortness 08/03/22 12/25/24 12/23/24 History aerosol inhaler (Ventolin HFA) of breath or wheezing atorvastatin 20 mg tablet 20 mg PO DAILY 08/03/22 12/25/24 12/24/24 History meloxicam 15 mg tablet 15 mg PO DAILY 08/03/22 12/25/24 12/24/24 History solifenacin 10 mg tablet (Vesicare) 10 mg PO DAILY 08/03/22 12/25/24 12/24/24 History intraoperative neurophysiological #1 ea 08/05/22 11/22/24 Unknown Rx testing cyclobenzaprine 10 mg tablet 10 mg PO TID PRN muscle spasm #30 09/29/22 12/25/24 12/22/24 Rx tabs methocarbamol 500 mg tablet 500 mg PO TID PRN muscle spasm 30 04/07/23 12/25/24 Unknown Rx days #90 tabs diazepam 5 mg tablet (Valium) 5 mg PO BID PRN anxiety #60 tabs 02/29/24 12/25/24 Unknown Rx mirtazapine 30 mg tablet (Remeron) 30 mg PO .hs 12/25/24 12/25/24 12/24/24 History vortioxetine 10 mg tablet 10 mg PO DAILY 12/25/24 12/25/24 12/24/24 History (Trintellix) Allergies Allergy/AdvReac Type Severity Reaction Status Date / Time tetracycline Allergy Unknown unk Verified 12/26/24 06:37 adhesive tape Allergy ALGY-Hives Verified 12/26/24 06:37 sulfamethoxazole (From Allergy ALGY-Hives Verified 12/26/24 06:37 Bactrim) trimethoprim (From Bactrim) Allergy ALGY-Hives Verified 12/26/24 06:37 Current Medications Generic Name Dose Route Start Last Admin Trade Name Freq PRN Reason Stop Dose Admin Sodium Chloride 1,000 mls @ 30 mls/hr 12/26/24 06:30 12/26/24 07:07 Sodium Chloride 0.9% IV 12/27/24 06:29 30 mls/hr .Q24H DAWNA Administration PFSH Anesthesia Medical History (Updated 11/13/24 @ 12:04 by LAUREN Hewitt) Hx of carotid stenosis Tobacco dependence Essential hypertension Chronic kidney disease (CKD) Hx of arterial ischemic stroke last one August 2021 COPD (chronic obstructive pulmonary disease) History of stroke History of fracture of wrist right History of skin cancer removed from nose Insomnia Migraines Neck pain Numbness and tingling Psychiatric care Major depressive disorder, recurrent severe without psychotic features Surgical History Hx of colonoscopy with polypectomy 06/28/16 Hx of hysterectomy History of ankle surgery left Hx of knee surgery left lateral release Hx of shoulder surgery bilateral Family History Denies family history of Clotting disorder Anesthesia complication Bleeding disorder Social History Smoking and tobacco/nicotine status: current some day tobacco/nicotine user cigarettes Packs smoked per day: 0.5 Alcohol intake: never Substance/Drug Use: current Substance/Drug use frequency: daily Anesthesia Procedures Nerve Block Nerve Block 1: Main Anesthesia: general anesthesia Time Out Performed: Yes Consent: requested by attending/covering physician, from patient, from other, risks and benefits reviewed and patient agrees to proceed Nerve block location: supraclavicular (R) Anesthesia monitors applied: pulse oximetry, EKG, BP cuff and oxygen Nerve block position: semi sitting Anesthetic Used: ropivicaine 0.5% (20 ml) and with decadron (4 mg) Ultrasound used to: recognize landmarks Nerve Stimulator Used?: No Interscalene/Femoral BLK: 2 stimuplex 22 g needle used for position and inplane approach, visualize local anesthetic spread and no vascular puncture identified Injection: neg aspiration of heme Patient Tolerated Procedure: well Complications: none
[2024-12-26] MEDS: ceFAZolin 2,000 MG in sodium chloride 0.9% (plus) 50 ML 100 MG IV (08:23)
--- NOTE | 2024-12-26 09:13 | W.PM.BPON ---
Date of Procedure: 12/26/2024 Surgeon: Edin Mathias DO Eviction Specialist(s): Korey Mathias PA-C Procedure(s) performed: Right carpal tunnel release Right cubital tunnel release (ulnar nerve decompression of the elbow) Findings of the procedure(s): Underwent procedure as planned without issues or complications. Patient had no instability of the ulnar nerve at the elbow as a result no transposition was performed, patient was taken recovery in stable condition. Estimated blood loss: 5 mL Specimen(s) removed: None Post-operative diagnosis: Right carpal tunnel syndrome, right cubital tunnel syndrome no subluxation of the ulnar
--- NOTE | 2024-12-26 09:17 | PM.OP ---
Operative Report Date of procedure: December 26, 2024 Surgeon: Edin Mathias DO Contact Clerk: Korey Mathias PA-C: PA was necessary for assistance in this case with hand positioning to execute the procedure, retraction and protection of neurovascular structures as well as to assist with wound closure and dressing application. Procedure: Preoperative diagnosis: Right carpal tunnel syndrome Right cubital tunnel syndrome Postop Diagnosis: Same Procedure done: Right carpal tunnel release Right?cubital tunnel tunnel release (ulnar nerve decompression at elbow) Surgeon: Edin Mathias DO Estimated blood loss: 5 mL Tourniquet? 12 minutes IV fluids: 600 mL Complications: None Findings: See operative report narrative Condition: stable Disposition: same day Brief History: Patient's been seen and worked up in the outpatient setting and findings consistent with preoperative diagnosis.? Patient has right carpal tunnel syndrome as well as right?cubital tunnel syndrome which has been worked up in the outpatient setting has physical exam findings consistent with this as well as confirmatory nerve conduction/EMG nerve conduction study consistent with diagnosis.? Patient's failed conservative treatment.? As result through shared decision making agreed to proceed with? right carpal tunnel and right?cubital tunnel release with possible ulnar nerve transposition we talked about treatment options as far as nonoperative and operative intervention.? Understands risk benefits complication alternatives surgical nonsurgical treatment options.? Understanding risks patient agrees to proceed with surgical intervention. Understanding these risks patient agrees to proceed with surgery.? Consent obtained in the preoperative holding area. Procedure: Patient seen evaluate in the preoperative holding area.? Consent was reviewed and signed with patient.? Correct extremity marked.? Patient seen evaluated by anesthesia department once cleared for surgery was then taken back to the operative suite placed in supine position all bony prominences well-padded patient properly secured to bed.? right upper extremity placed onto armboard.? Nonsterile tourniquet applied right upper arm.? Patient then underwent anesthesia per the anesthesia department.? Patient's right upper extremity was then prepped and draped in standard orthopedic fashion.? Final timeout performed.? Patient received appropriate preoperative antibiotics. Esmarch was used exsanguinate the right upper extremity.? Tourniquet was insufflated to 250 mmHg. I started with the carpal tunnel release first.? I made a standard open carpal tunnel release starting with the distal most extent in the palm at the Perez's cardinal line and the incision line was made in line with the fourth ray and ended just distal to the wrist crease.? Sharp scalpel incision was made through skin and subcutaneous tissue I then utilizing self retainer then began to dissect with dissection scissors split longitudinally the palmar fascia.? Next I then utilizing my orthopaedic physician assistant Dary retractors subsequently utilizing scalpel feathered through the palmaris brevis as well as through the transverse carpal ligament distally.? Once I encountered the floor of the transverse carpal ligament and entered into the carpal tunnel I then switched to dissection scissors.? Carefully released the distal extent of the transverse carpal ligament to the palmar fat.? Care was to protect the recurrent branch and not injured this during this part of the case.? Next I then placed a Ferdinand underneath the transverse carpal ligament proximally to protect the nerve in the carpal tunnel contents.? And then I subsequently under loupe magnification utilize my dissection scissors to release the transverse carpal ligament into the antebrachial fascia under direct visualization with care to keep my scissors with a curved ulnarly away from the palmar cutaneous branch.? The transverse carpal was then completely decompressed proximally and a Ferdinand was then placed both distally and proximally throughout the carpal tunnel and had complete decompression of the nerve.? The nerve did appear to have hourglass shape as it went through the carpal tunnel.? With significant irritation noted around the nerve.? No masses were noted within the contents of the carpal tunnel.? This completed the carpal tunnel release and then I subsequently irrigated the wound bed and placed a wet Ray-Edwin into the incision for later closure. Next marked out the landmarks of the right elbow of the medial epicondyle and olecranon and made a curvilinear incision following the course of the ulnar nerve at the medial aspect of the elbow.? Sharp scalpel incision was made through skin and subcutaneous tissue.? Next I switched to Littler dissection scissors and spread in plane of the medial antebrachial cutaneous nerve branching which was protected throughout this part of the dissection.? Then I directly came down over the fascia and identified the 2 heads of the FCU fascia and split this right in the middle and subsequently identified my ulnar nerve distally.? This was then completely released distally under direct visualization and loupe magnification.? Once the nerve was then identified I then subsequently tracked this proximally and released this through Yeager's ligament as well as complete decompression of the nerve proximally all the way past the intermuscular septum.? The nerve was completely released and decompressed both proximally and distally.? Ulnar nerve neurolysis performed and completed both proximally and distally with dissection scissors.? I then took the elbow through range of motion and there was no instability or subluxating of the ulnar nerve.? This completed?cubital tunnel release.? ?Next the wound bed was thoroughly irrigated.? Tourniquet was deflated.? Hemostasis was satisfactory at the?cubital tunnel release surgery site. I then inspected the carpal tunnel incision and this was found to have satisfactory hemostasis and all this was maintained through bipolar electrocautery.? At this point time I sequentially closed?cubital tunnel site with 3-0 Vicryl suture in a running horizontal mattress nylon stitch.? ? The carpal tunnel release surgery was then closed in standard interrupted mattress fashion.? Dressing was Xeroform 4 x 4's ABD Curlex soft roll and an Pablo wrap has a bulky soft dressing. Patient was then awakened from anesthesia and taken to PACU in stable condition. Disposition: Patient taken to PACU in stable condition recovering well.? Patient will receive appropriate discharge instructions as well as pain medication postoperatively.? We will follow-up with me in the office in 2 weeks.? Patient understands agrees with current plan.? All questions answered.? He understands if any questions or concerns and contact the office for follow-up appointment.
--- NOTE | 2024-12-26 09:29 | PM.PACU ---
PACU note Narrative: Patient is a 64-year-old female that is here after he had a a right carpal tunnel release and right cubital tunnel release. Patient transferred to PACU in stable condition. Pain is well controlled. Dressing on hand is dry and in place. Patient's fingers are warm and well-perfused. normal cap refill under 2 seconds. Patient able to wiggle fingers. Unable to perform any further motor or sensory function due to residual block. Exam: awake Disposition: discharged
--- NOTE | 2024-12-26 10:45 | ANE.PACU2 ---
Inpatient post-anesthesia follow up: Airway intact: Yes Vital signs: Temperature 98.1 F Pulse Rate 59 Respiratory Rate 15 Blood Pressure 157/81 Pulse Oximetry 96 Oxygen Delivery Me thod Room Air Oxygen Flow Rate Fraction of Inspir ed Oxygen Hydration adequate: Yes Nausea and vomiting: No Pain level: 1 Mental status: Baseline
== END 2024-12-26 10:46 | disposition home or self-care (01) ==
PROVIDERS: PCP Family Medicine; Visit Provider Student in an Organized Health Care Education/Training Program
PROC: (CPT 64721; principal; 2024-12-26 08:00)
PROC: (CPT 64718; 2024-12-26 08:00)
DX: G56.01 Carpal tunnel syndrome, right upper limb (principal); G56.21 Lesion of ulnar nerve, right upper limb; J44.9 Chronic obstructive pulmonary disease, unspecified; I12.9 Hypertensive chronic kidney disease with stage 1 through stage 4 chronic kidney disease, or unspecified chronic kidney disease; N18.9 Chronic kidney disease, unspecified; Z86.73 Personal history of transient ischemic attack (TIA), and cerebral infarction without residual deficits; Z85.828 Personal history of other malignant neoplasm of skin; F32.9 Major depressive disorder, single episode, unspecified; I65.29 Occlusion and stenosis of unspecified carotid artery; F17.210 Nicotine dependence, cigarettes, uncomplicated; F12.90 Cannabis use, unspecified, uncomplicated
CPT/HCPCS: 64718; 64721; J0131; J0690; J1100; J1885; J2250; J2371; J2405; J2704; J2795; J3010; J7030; J9999

== ENCOUNTER → 2025-01-22 14:29 | Outpatient (BNVA) | payer OTHER, MEDICARE, MEDICAID, SELFPAY | PROVIDERS: PCP Family Medicine; Visit Provider Physician Assistant | DX: Z98.890 Other specified postprocedural states (principal) | CPT/HCPCS: 99024 ==